=== PATIENT | male | born 1965 | race American Indian/Alaskan Native ===

== ENCOUNTER 2017-03-28 11:29 | Emergency (ER) | payer OTHER ==
[2017-03-28] MEDS ORDERED: XYLOCAINE 1% 20 mL INFILTRATI ONE (11:52)
[2017-03-28] MEDS ORDERED: TRIPLE ANTIBIOTIC TP ONE (11:52)
[2017-03-28] MEDS ORDERED: BOOSTRIX IM ONE (11:52)
[2017-03-28] MEDS ORDERED: ANCEF IV ONE (11:52)
[2017-03-28] MEDS ORDERED: PERCOCET 5/325 PO ONE ×2 (11:52→14:46)
[2017-03-28] MEDS ORDERED: NACL 0.9% IR ONE (11:52)
--- NOTE | 2017-03-28 11:55 | Emergency Department Report ---
<GABRIELLA COSBY - Last Filed: 03/28/17 18:43> ED Upper Extremity Inj HPI - General Chief Complaint: Laceration/Recheck/Suture Stated Complaint: HAND INJURY Time Seen by Provider: 03/28/17 11:51 Source: patient, family Mode of arrival: Ambulatory Limitations: No Limitations - History of Present Illness Complaint: Injury to:: left -: Sudden Other Extremity Injury: Fingers: Left Other Injuries: none Handedness: right Place: work Severity scale (0 -10): 9 Improves With: none Worsens With: movement of extremity Context: direct blow, other (WHILE TAKING LID OF A SEPTIC TANK IT BOUNCED BACK AT HIM) Associated Symptoms: denies other symptoms, other (NEEDS TDAP) - Related Data Previous Rx's Medication Instructions Recorded Last Taken Type Cephalexin [Keflex] 500 mg PO Q12HR #20 cap 03/28/17 Unknown Rx HYDROcodone/APAP 7.5-325 [Star 1 each PO Q6HR PRN #20 tablet 03/28/17 Unknown Rx 7.5/325] Lisinopril [Prinivil] 10 mg PO DAILY #30 tablet 03/28/17 Unknown Rx Morphine Sulfate/Pf [Morphine 1 2 mg IV NOW #2 syringe 03/28/17 Unknown Rx mg/2 ml Syringe] Allergies Allergy/AdvReac Type Severity Reaction Status Date / Time No Known Allergies Allergy Verified 03/28/17 11:33 ED Review of Systems ROS: Stated complaint: HAND INJURY Other details as noted in HPI Comment: All other systems reviewed and negative Musculoskeletal: other (FINGER PAIN) Skin: other (LAC TO LEFT 2/3 FINGERS) ED Past Medical Hx - Past Medical History Hx Hypertension: Yes Additional medical history: OFF HTN MEDS - Surgical History Past Surgical History?: No - Family History Family history: no significant - Social History Smoking Status: Never Smoker Substance Use Type: Alcohol - Medications Home Medications: Home Medications Medication Instructions Recorded Confirmed Last Taken Type Cephalexin [Keflex] 500 mg PO Q12HR #20 cap 03/28/17 Unknown Rx HYDROcodone/APAP 7.5-325 [Star 1 each PO Q6HR PRN #20 tablet 03/28/17 Unknown Rx 7.5/325] Lisinopril [Prinivil] 10 mg PO DAILY #30 tablet 03/28/17 Unknown Rx Morphine Sulfate/Pf [Morphine 1 2 mg IV NOW #2 syringe 03/28/17 Unknown Rx mg/2 ml Syringe] ED Physical Exam - General Limitations: No Limitations ED Course Vital Signs 03/28/17 03/28/17 03/28/17 11:33 12:19 13:09 Temperature 97.9 F Pulse Rate 88 Respiratory 18 18 18 Rate Blood Pressure 201/109 Blood Pressure [Right] O2 Sat by Pulse 98 Oximetry 03/28/17 03/28/17 03/28/17 13:19 13:39 14:52 Temperature 97.6 F Pulse Rate 83 Respiratory 18 18 18 Rate Blood Pressure Blood Pressure 174/106 [Right] O2 Sat by Pulse 100 Oximetry 03/28/17 03/28/17 03/28/17 14:58 15:35 16:05 Temperature Pulse Rate 83 78 78 Respiratory 18 Rate Blood Pressure 174/106 179/102 179/102 Blood Pressure [Right] O2 Sat by Pulse 99 Oximetry - Reevaluation(s) Reevaluation #1: 03/28/17 TO ER FROM WORK RELATED INJURY VIA POV HAND LAC TO L HAND BLEEDING CONTROLLED HTN NOTED NO OTHER INJURY XRAY NOTED TDAP NEEDED ANCEF OPEN FX LABS NOTED MEDICATED FOR PAIN Reevaluation #2: 03/28/17 WOUND REPAIRED PER NOTE TOLERATED WELL MEDICATED FOR PAIN - SEE ORDERS VSS. NAD GOOD RADIAL AND ULNAR PULSES RAPID CAP REFILL TO NON INJURED FINGERS CAN MOVE 4RTH DIG; NAIL BED INTACT BUT IS INJURED. CAN MOVE DIP. 3RD CAN NOT MOVE DIP; THIS DIGIT IS MANGLED AND NEARLY AMPUTATED. IT IS HELD IN PLACE BY PALMAR SURFACE SKIN. THEN NAIL IS AVULSED FROM THE BED; BONE EXPOSED FULL ROM OF HAND AND WRIST SEE PROCEDURE NOTE Reevaluation #3: 03/28/17 16:01 BP TRENDING DOWNWARD DC HOME W FAMILY MEMBER RX FOR LISINOPRIL DRESSING APPLIED AND WOUND CARE INSTRUCTIONS GIVEN DETAILED FOLLOW UP INSTRUCTIONS AND REFERRALS HAVE BEEN GIVEN. - Laceration /Wound Repair L 2ND FINGER Wound Location: upper extremity Wound Length (cm): 1 Wound's Depth, Shape: superficial, stellate, contused tissue Wound Explored: clean Irrigated w/ Saline (ccs): 100 Betadine Prep?: Yes Anesthesia: 1% Lidocaine Volume Anesthetic (ccs): 4 (BLOCK) Wound Debrided: minimal Wound Repaired With: sutures Suture Size/Type: 5:0 Number of Sutures: 1 Layer Closure?: No Sterile Dressing Applied?: Yes Progress: AVULSION WOUND ACROSS DIP XRAY NOTED OPEN FX WOUND CLEANED DIGITAL BLOCK 1 SUTURE TO TACK THE AVULSED SKIN DOWN WOUND IS BLEEDING AROUND NAIL BED BUT THE BASE OF THE NAIL BED IS INTACT. NO NEED TO OPEN NAIL. RAPID CAP REFILL DISTAL SENSATION INTACT. L 3RD FINGER Wound Location: upper extremity Wound Length (cm): 2 Wound's Depth, Shape: flap, stellate, nail-avulsed, contused tissue Wound Explored: contaminated Irrigated w/ Saline (ccs): 100 Betadine Prep?: Yes Anesthesia: 1% Lidocaine Volume Anesthetic (ccs): 4 Wound Debrided: minimal Wound Repaired With: sutures Suture Size/Type: 5:0 Number of Sutures: 3 Layer Closure?: No Sterile Dressing Applied?: Yes Progress: 3 SUTURES USED TO BRING APPROX THE FINGER TIP ONE MED ONE LAT ONE OVER NAIL ITSELF THE TISSUE IS CONTUSED BUT IS PINK AND BLANCHES DISCUSSED POSSIBLE EVENTS W PT DR SCOTT AT BEDSIDE TO EVAL WOUND - Nerve Block Consent Obtained: verbal consent Time Out Performed: Yes Local Anesthetic Used: Lidocaine 1% Amount of anesthesia used: 8 Side: left Nerve Blocks: ulnar, median Procedure Successful: Yes Complications: none Patient Tolerated Procedure: well ED Medical Decision Making - Lab Data Result diagrams: 03/28/17 11:53 03/28/17 11:53 - Radiology Data Radiology results: report reviewed, image reviewed - Medical Decision Making SEE NOTE - Differential Diagnosis OPEN FX Critical care attestation.: If time is entered above; I have spent that time in minutes in the direct care of this critically ill patient, excluding procedure time. ED Disposition Clinical Impression: Closed fracture of tuft of distal phalanx of finger, Crush injury, Open wound, Contusion, Hypertension, Non-adherence to medical treatment Disposition: DC-01 TO HOME OR SELFCARE Is pt being admited?: No Does the pt Need Aspirin: No Condition: Stable Instructions: Finger Fracture (ED), Hypertension (ED) Additional Instructions: LEAVE DRESSING ON THAT WE APPLIED UNTIL SEEN BY ORTHO MEDS ORDERED TDAP WAS GIVEN TODAY Prescriptions: Cephalexin [Keflex] 500 mg PO Q12HR #20 cap HYDROcodone/APAP 7.5-325 [Star 7.5/325] 1 each PO Q6HR PRN #20 tablet PRN Reason: Pain Lisinopril [Prinivil] 10 mg PO DAILY #30 tablet Morphine Sulfate/Pf [Morphine 1 mg/2 ml Syringe] 2 mg IV NOW #2 syringe Referrals: KYLE CERVANTES III, MD [Referring] - 3-5 Days PREMA HARRELL MD [Staff Physician] - 3-5 Days ROSE DE LA CRUZ MD [Staff Physician] - 3-5 Days KANG FERGUSON MD [Staff Physician] - 3-5 Days PHYLLIS KRISHNAMURTHY MD [Staff Physician] - 3-5 Days SHAINA MADRID MD [Staff Physician] - 3-5 Days Time of Disposition: 14:42 <KANG SCOTT - Last Filed: 03/29/17 19:01> ED Medical Decision Making - Lab Data Result diagrams: 03/28/17 11:53 03/28/17 11:53
[2017-03-28] MEDS ORDERED: MORPHINE IV ONE (13:03)
--- NOTE | 2017-03-28 13:09 | XRay Report ---
LEFT HAND RADIOGRAPHS INDICATION: Crush injury to left hand, third digit. COMPARISON: None similar. FINDINGS: AP, lateral and oblique left hand radiographs demonstrate extensive soft tissue avulsion and compound fractures at the tip of the 3rd digit with approximately 1 cm displacement. Comminuted fractures of the tuft/distal aspect of the fourth distal phalanx also seen. No joint involvement. Grossly intact remainder bony articulation. Numerous probable extrinsic artifacts/debris, most along the thumb. CONCLUSION: Severe crush injury to distal aspects of left third and fourth digits, including acute comminuted/compound fractures, as detailed above. Thank you for the opportunity to participate in this patient's care.
[2017-03-28 13:29] LABS: Basophils % (Auto) 0.9 % (0.0-1.8); Eosinophils % (Auto) 0.6 % (0.0-4.3); Hematocrit 45.3 % (35.5-45.6); Mean Corpuscular HGB Conc 33 % (32-34); Mean Corpuscular Hemoglobin 28 pg (28-32); Mean Corpuscular Volume 85 fl (84-94); Platelet Count 264 K/mm3 (140-440); Red Blood Count 5.34 M/mm3 (3.65-5.03); Red Cell Distribution Width 13.4 % (13.2-15.2); White Blood Count 3.9 K/mm3 (4.5-11.0)
[2017-03-28 13:46] LABS: Alanine Aminotransferase 20 units/L (7-56); Albumin 4.2 g/dL (3.9-5); Albumin/Globulin Ratio 1.1 %; Alkaline Phosphatase 89 units/L (35-129); Anion Gap 18 mmol/L; BUN/Creatinine Ratio 16; Blood Urea Nitrogen 14 mg/dL (9-20); Calcium 9.1 mg/dL (8.4-10.2); Carbon Dioxide 25 mmol/L (22-30); Chloride 97.1 mmol/L (98-107); Glucose 146 mg/dL (75-100); Potassium 4.8 mmol/L (3.6-5.0); Sodium 135 mmol/L (137-145); Total Protein 7.9 g/dL (6.3-8.2)
[2017-03-28] MEDS ORDERED: CATAPRES PO ONE (14:54)
[2017-03-28] MEDS ORDERED: CATAPRES ONE (14:57)
[2017-03-28 15:39] VITALS: BP 179/102
[2017-03-28] MEDS ORDERED: ZESTRIL PO ONE (15:55)
== END 2017-03-28 16:07 | disposition home or self-care (01) ==
LOC: ED 11:29
DX: S62.663B Nondisplaced fracture of distal phalanx of left middle finger, initial encounter for open fracture (principal); S62.665B Nondisplaced fracture of distal phalanx of left ring finger, initial encounter for open fracture; I10 Essential (primary) hypertension; W20.8XXA Other cause of strike by thrown, projected or falling object, initial encounter; Y93.89 Activity, other specified; Y92.89 Other specified places as the place of occurrence of the external cause; Y99.8 Other external cause status
CPT/HCPCS: 12041; 36415; 73130; 80053; 85025; 90471; 90715; 96374; 96375; 99284; J0690; J2270; A6250

== ENCOUNTER 2017-04-06 12:32 | Emergency (ER) | payer SELFPAY ==
[2017-04-06 17:52] VITALS: BP 200/122
== END 2017-04-06 22:30 | disposition left against medical advice (07) ==
LOC: ED 12:32
DX: S69.92XA Unspecified injury of left wrist, hand and finger(s), initial encounter (principal); Z53.21 Procedure and treatment not carried out due to patient leaving prior to being seen by health care provider; X58.XXXA Exposure to other specified factors, initial encounter; Y93.89 Activity, other specified; Y99.8 Other external cause status; Y92.89 Other specified places as the place of occurrence of the external cause

== ENCOUNTER 2017-04-07 09:57 | Emergency (ER) | payer OTHER ==
--- NOTE | 2017-04-07 10:36 | Emergency Department Report ---
ED General Adult HPI - General Chief complaint: Laceration/Recheck/Suture Stated complaint: LEFT HAND FINGER INJURY Time Seen by Provider: 04/07/17 10:36 Source: patient, RN notes reviewed, old records reviewed Mode of arrival: Ambulatory Limitations: No Limitations - History of Present Illness -: Gradual Location: upper extremity Improves with: none Worsens with: none Associated Symptoms: denies: confusion, chest pain, cough, diaphoresis, fever/ chills, headaches, loss of appetite, malaise, nausea/vomiting, rash, seizure, shortness of breath, syncope, weakness Treatments Prior to Arrival: other (REPORTS HE TOOK HIS ANTIBIOTICS) - Related Data Previous Rx's Medication Instructions Recorded Last Taken Type Lisinopril [Prinivil] 10 mg PO DAILY #30 tablet 03/28/17 Unknown Rx Clindamycin [Clindamycin CAP] 300 mg PO Q6H #40 capsule 04/07/17 Unknown Rx traMADol [Ultram] 50 mg PO Q6HR PRN #20 tablet 04/07/17 Unknown Rx Allergies Allergy/AdvReac Type Severity Reaction Status Date / Time No Known Allergies Allergy Verified 04/07/17 10:30 ED Review of Systems ROS: Stated complaint: LEFT HAND FINGER INJURY Other details as noted in HPI Comment: All other systems reviewed and negative Skin: other (FINGER PAIN - SEE NOTE; NO FEVER OR OTHER CO) ED Past Medical Hx - Past Medical History Hx Hypertension: Yes Additional medical history: OFF HTN MEDS, Left hand crush injury - Social History Smoking Status: Current Every Day Smoker Substance Use Type: Alcohol, Marijuana, Prescribed - Medications Home Medications: Home Medications Medication Instructions Recorded Confirmed Last Taken Type Lisinopril [Prinivil] 10 mg PO DAILY #30 tablet 03/28/17 Unknown Rx Clindamycin [Clindamycin CAP] 300 mg PO Q6H #40 capsule 04/07/17 Unknown Rx traMADol [Ultram] 50 mg PO Q6HR PRN #20 tablet 04/07/17 Unknown Rx ED Physical Exam - General Limitations: No Limitations General appearance: alert - Head Head exam: Present: atraumatic - Eye Eye exam: Present: PERRL - ENT ENT exam: Present: mucous membranes moist - Neck Neck exam: Present: normal inspection - Respiratory Respiratory exam: Present: normal lung sounds bilaterally - Cardiovascular Cardiovascular Exam: Present: regular rate - GI/Abdominal GI/Abdominal exam: Present: soft - Extremities Exam Extremities exam: Present: normal inspection, full ROM - Expanded Upper Extremity Exam Left Hand Wrist exam: Present: other (SEE NOTE) - Back Exam Back exam: Present: normal inspection, full ROM - Neurological Exam Neurological exam: Present: alert, oriented X3, CN II-XII intact - Psychiatric Psychiatric exam: Present: normal affect, normal mood - Skin Skin exam: Present: warm, dry, intact ED Course Vital Signs 04/07/17 04/07/17 10:31 12:44 Temperature 97.8 F Pulse Rate 86 84 Respiratory 18 Rate Blood Pressure 191/114 162/101 O2 Sat by Pulse 99 Oximetry - Reevaluation(s) Reevaluation #1: 04/07/17 11:37 TO ER NO FOLLOW UP INSTRUCTED DISCUSSED W DR FINK DISCUSSED W DR KRISHNAMURTHY- no need to admit for amputation; continue current plan; believes it will dry and slough off. WBC N TEMP N Reevaluation #2: 04/07/17 12:37 PT SUFFERED PARTIAL AMP TO FINGER APPROX 10 D AGO HE DID NOT FOLLOW UP HE DID TAKE ANBX TODAY PRESENTS W PALMAR SURFACE OF THE R MIDDLE FINGER DISCOLORED NO FEVER NON TOXIC NON SEPTIC APPEARING PAINFUL 04/07/17 12:39 WOUND CARE- WOUND CLEANED. SUTURE TO THE RING FINGER REMOVED THIS FINGER IS PINK WO DRAINAGE SEEMS TO BE HEALING OK THE MIDDLE FINGER IS THE FINGER W DISCOLORATION AND PAIN NO PURULENT DRAINAGE PT REPORTS THAT WHEN IT DOES DRAIN IT IS FLUID; NOT PURULENT NO ODOR NO NECROSIS MORE WET APPEARING THAN DRY APPEARING. IM CLINDA WILL START ON PO CLINDA TDAP IS UTD MEDICATED FOR PAIN PT WOUND CARE BP ELEVATED DID NOT FOLLOW UP FOR THAT EITHER CLONIDINE PO Reevaluation #3: 04/07/17 13:17 dc to home w bp dec to follow up Mendoza discussed w pt follow up as well daughter at bedside ED Medical Decision Making - Lab Data Result diagrams: 04/07/17 10:53 04/07/17 10:53 - Medical Decision Making SEE NOTE DR KRISHNAMURTHY CONSULTED WBC N TEMP N - Differential Diagnosis RO INFECTION Critical care attestation.: If time is entered above; I have spent that time in minutes in the direct care of this critically ill patient, excluding procedure time. ED Disposition Clinical Impression: Finger, open wounds, complicated, Hypertension Disposition: DC-01 TO HOME OR SELFCARE Is pt being admited?: No Does the pt Need Aspirin: No Condition: Stable Instructions: Finger Amputation (ED) Additional Instructions: TAKE MEDS WRITTEN TODAY CONRADR 18$ CALL PCP GIVEN BELOW FOR AN APPOINTMENT THIS WEEK TELL THEM YOU'VE BEEN SEEN HERE AND WE REFERRED YOU YOUR BLOOD PRESSURE IS NOT CONTROLLED CALL DR KRISHNAMURTHY IN AM TELL HIM HE SPOKE Edward MODI TODAY AND LAST WEEK TELL HIM YOU WHERE INJURED AT WORK WE ARE CONCERNED ABOUT LOOSING THE TIP OF FINGER IF YOU CAN NOT GET TO DR KRISHNAMURTHY ASK TO SPEAK WITH HIS NURSE OR PHYSICIAN [employer] AND ASK THEM TO REVIEW YOUR MEDICAL RECORD FROM ER TODAY. CHANGE DRESSING DAILY WASH WITH SOAP AND WATER RETURN TO ER FOR FEVER Prescriptions: Clindamycin [Clindamycin CAP] 300 mg PO Q6H #40 capsule traMADol [Ultram] 50 mg PO Q6HR PRN #20 tablet PRN Reason: Pain Referrals: [facility] [Outside] - 3-5 Days PHYLLIS KRISHNAMURTHY MD [Staff Physician] - 3-5 Days Time of Disposition: 11:38
[2017-04-07 11:09] LABS: Basophils # (Auto) 0.1 K/mm3 (0.0-0.1); Basophils % (Auto) 1.3 % (0.0-1.8); Eosinophils # (Auto) 0.1 K/mm3 (0.0-0.4); Eosinophils % (Auto) 1.5 % (0.0-4.3); Hematocrit 48.8 % (35.5-45.6); Hemoglobin 16.2 gm/dl (11.8-15.2); Lymphocytes # (Auto) 1.8 K/mm3 (1.2-5.4); Lymphocytes % (Auto) 37.5 % (13.4-35.0); Mean Corpuscular HGB Conc 33 % (32-34); Mean Corpuscular Hemoglobin 28 pg (28-32); Mean Corpuscular Volume 84 fl (84-94); Monocytes # (Auto) 0.8 K/mm3 (0.0-0.8); Monocytes % (Auto) 15.7 % (0.0-7.3); Platelet Count 329 K/mm3 (140-440); Red Blood Count 5.81 M/mm3 (3.65-5.03); Red Cell Distribution Width 12.9 % (13.2-15.2)
[2017-04-07 11:51] LABS: Alanine Aminotransferase 23 units/L (7-56); Albumin 4.5 g/dL (3.9-5); BUN/Creatinine Ratio 13; Blood Urea Nitrogen 12 mg/dL (9-20); Calcium 9.3 mg/dL (8.4-10.2); Hemolysis Index 5
[2017-04-07] MEDS ORDERED: CLEOCIN IM ONE (12:05)
[2017-04-07] MEDS ORDERED: PERCOCET 5/325 PO ONE (12:06)
[2017-04-07] MEDS ORDERED: CATAPRES PO ONE (12:08)
[2017-04-07 13:29] VITALS: BP 159/88
== END 2017-04-07 13:29 | disposition home or self-care (01) ==
LOC: ED 09:57
DX: S61.215D Laceration without foreign body of left ring finger without damage to nail, subsequent encounter (principal); I10 Essential (primary) hypertension; F12.10 Cannabis abuse, uncomplicated; F17.200 Nicotine dependence, unspecified, uncomplicated; Z98.890 Other specified postprocedural states; X58.XXXD Exposure to other specified factors, subsequent encounter
CPT/HCPCS: 36415; 80053; 85025; 96372

== ENCOUNTER 2021-05-01 10:12 | Inpatient (IN) | payer SELFPAY ==
--- NOTE | 2021-05-01 10:40 | Emergency Department Report ---
HPI - General Chief Complaint: High BP Time Seen by Provider: 05/01/21 10:31 - HPI HPI: 56-year-old -F[place] male presents to the emergency department via EMS from home with a complaint of some weakness causing him to have a fall that occurred yesterday afternoon. Patient says that he was walking in his home when suddenly he got dizzy and fell down, hitting his head on the wall in the process. His daughter came home yesterday evening and he told her about the fall and that he was having left leg weakness but declined to have her call for EMS at that time. He finally agreed to let her call for EMS this morning. When EMS arrived the patient no longer had the left leg weakness but just complained of some generalized weakness. He was found to have an extremely elevated blood pressure with a systolic of about 240. He does have a history of hypertension and admits to medication noncompliance. He complains of a mild generalized headache, but denies any fever, vision change, slurred speech, numbness, chest pain, shortness of breath. He has not taken anything, nor received anything, for his symptoms prior to presentation today. ED Past Medical Hx - Past Medical History Hx Hypertension: Yes Additional medical history: OFF HTN MEDS, Left hand crush injury - Social History Smoking Status: Current Every Day Smoker Substance Use Type: Alcohol, Marijuana, Prescribed - Medications Home Medications: Home Medications Medication Instructions Recorded Confirmed Last Taken Type lisinopriL [Prinivil] 10 mg PO DAILY #30 tablet 03/28/17 05/01/21 Unknown Rx Clindamycin [Clindamycin CAP] 300 mg PO Q6H #40 capsule 04/07/17 05/01/21 Unknown Rx traMADoL [Ultram] 50 mg PO Q6HR PRN #20 tablet 04/07/17 05/01/21 Unknown Rx ED Review of Systems ROS: Stated complaint: HYPERTENSION/POSS CVA Other details as noted in HPI Comment: All other systems reviewed and negative Constitutional: weakness. denies: chills, fever Eyes: denies: eye pain, vision change ENT: denies: ear pain, throat pain Respiratory: denies: cough, orthopnea Cardiovascular: denies: chest pain, palpitations Gastrointestinal: denies: abdominal pain, vomiting Genitourinary: denies: dysuria, discharge Musculoskeletal: denies: back pain, arthralgia Skin: denies: rash, lesions Neurological: headache, weakness, other (dizziness). denies: numbness, paresthesias Physical Exam - Physical Exam Physical Exam: GENERAL: The patient is well-developed well-nourished. HENT: Normocephalic. Atraumatic. Patient has moist mucous membranes. EYES: Extraocular motions are intact. No nystagmus. NECK: Supple. Trachea is midline. CHEST/LUNGS: Clear to auscultation. There is no respiratory distress noted. HEART/CARDIOVASCULAR: Regular. There is no tachycardia. There is no murmur. ABDOMEN: Abdomen is soft, nontender. Patient has normal bowel sounds. There is no abdominal distention. SKIN: Skin is warm and dry. NEURO: The patient is awake, alert, and oriented. The patient is cooperative. The patient has no focal neurologic deficits. Normal speech. Cranial nerves II through XII grossly intact. No pronator drift or dysmetria. No facial asymmetry. MUSCULOSKELETAL: There is no tenderness or deformity. There is no limitation range of motion. ED Course - Reevaluation(s) Reevaluation #1: 05/01/21 15:36 The patient has received 20 mg of hydralazine, 20 mg of labetalol, and most recently got 0.2 mg of Catapres. His blood pressure continues to be very elevated and uncontrolled. I went to reevaluate the patient and found him sprawled out sideways on the bed complaining of severe dizziness and he is unable to ambulate secondary to this dizziness/lightheadedness. Initial CT scan of the head without contrast was unremarkable for any hemorrhage or large vessel occlusion. I placed an order for the patient to receive a CT angiography study of the head and neck. He will be admitted to the hospital and I have spoken to the hospitalist service (Dr Bustamante). ED Medical Decision Making - Lab Data Result diagrams: 05/01/21 11:33 05/01/21 11:33 Lab Results 05/01/21 05/01/21 05/01/21 Range/Units 11:33 11:33 11:33 WBC 4.8 (4.5-11.0) K/mm3 RBC 6.36 H (3.65-5.03) M/mm3 Hgb 16.9 H (11.8-15.2) gm/dl Hct 53.1 H (35.5-45.6) % MCV 83 L (84-94) fl MCH 27 L (28-32) pg MCHC 32 (32-34) % RDW 13.0 L (13.2-15.2) % Plt Count 333 (140-440) K/mm3 Lymph % (Auto) 22.5 (13.4-35.0) % Green % (Auto) 12.3 H (0.0-7.3) % Eos % (Auto) 0.4 (0.0-4.3) % Baso % (Auto) 1.1 (0.0-1.8) % Lymph # (Auto) 1.1 L (1.2-5.4) K/mm3 Green # (Auto) 0.6 (0.0-0.8) K/mm3 Eos # (Auto) 0.0 (0.0-0.4) K/mm3 Baso # (Auto) 0.1 (0.0-0.1) K/mm3 Seg Neutrophils % 63.7 (40.0-70.0) % Seg Neutrophils # 3.0 (1.8-7.7) K/mm3 PT (12.2-14.9) Sec. INR (0.87-1.13) Sodium 137 (137-145) mmol/L Potassium 4.7 (3.6-5.0) mmol/L Chloride 96.6 L (98-107) mmol/L Carbon Dioxide 24 (22-30) mmol/L Anion Gap 21 mmol/L BUN 12 (9-20) mg/dL Creatinine 1.1 (0.8-1.3) mg/dL Estimated GFR > 60 ml/min BUN/Creatinine Ratio 11 % Glucose 226 H (75-100) mg/dL Calcium 10.2 (8.4-10.2) mg/dL Total Bilirubin 0.50 (0.1-1.2) mg/dL AST 36 (5-40) units/L ALT 15 (7-56) units/L Alkaline Phosphatase 119 (35-129) units/L Troponin T < 0.010 (0.00-0.029) ng/mL Total Protein 8.8 H (6.3-8.2) g/dL Albumin 4.5 (3.9-5) g/dL Albumin/Globulin Ratio 1.0 % TSH 2.660 (0.270-4.200) mlU/mL 05/01/21 Range/Units 11:33 WBC (4.5-11.0) K/mm3 RBC (3.65-5.03) M/mm3 Hgb (11.8-15.2) gm/dl Hct (35.5-45.6) % MCV (84-94) fl MCH (28-32) pg MCHC (32-34) % RDW (13.2-15.2) % Plt Count (140-440) K/mm3 Lymph % (Auto) (13.4-35.0) % Green % (Auto) (0.0-7.3) % Eos % (Auto) (0.0-4.3) % Baso % (Auto) (0.0-1.8) % Lymph # (Auto) (1.2-5.4) K/mm3 Green # (Auto) (0.0-0.8) K/mm3 Eos # (Auto) (0.0-0.4) K/mm3 Baso # (Auto) (0.0-0.1) K/mm3 Seg Neutrophils % (40.0-70.0) % Seg Neutrophils # (1.8-7.7) K/mm3 PT 13.2 (12.2-14.9) Sec. INR 0.90 (0.87-1.13) Sodium (137-145) mmol/L Potassium (3.6-5.0) mmol/L Chloride (98-107) mmol/L Carbon Dioxide (22-30) mmol/L Anion Gap mmol/L BUN (9-20) mg/dL Creatinine (0.8-1.3) mg/dL Estimated GFR ml/min BUN/Creatinine Ratio % Glucose (75-100) mg/dL Calcium (8.4-10.2) mg/dL Total Bilirubin (0.1-1.2) mg/dL AST (5-40) units/L ALT (7-56) units/L Alkaline Phosphatase (35-129) units/L Troponin T (0.00-0.029) ng/mL Total Protein (6.3-8.2) g/dL Albumin (3.9-5) g/dL Albumin/Globulin Ratio % TSH (0.270-4.200) mlU/mL - EKG Data -: EKG Interpreted by Wi EKG shows normal: sinus rhythm, axis, intervals, QRS complexes (LVH), ST-T waves (Repolarization) Rate: normal - EKG Data When compared to previous EKG there are: previous EKG unavailable Interpretation: other (Sinus rhythm at 92 bpm, normal axis, normal intervals, LVH, early repolarization. No ST elevation DE) - Radiology Data Radiology results: report reviewed CT HEAD WITHOUT CONTRAST INDICATION / CLINICAL INFORMATION: Weakness, transient L leg weakness, HTN. TECHNIQUE: Axial imaging performed from the skull apex through the skull base without the use of contrast. Sagittal and coronal reformatted images. All CT scans at this location are performed using CT dose reduction for ALARA by means of automated exposure control. COMPARISON: None available. FINDINGS: CEREBRAL PARENCHYMA: Mild nonspecific chronic white matter changes are noted bilaterally. Small chronic appearing lacunar infarcts are identified in both basal ganglia. No large chronic infarct. No acute parenchymal abnormality is appreciated. HEMORRHAGE: None. EXTRA-AXIAL SPACES: Normal in size and morphology for the patient's age. VENTRICULAR SYSTEM: Normal in size and morphology for the patient's age. MIDLINE SHIFT OR HERNIATION: None. CEREBELLUM / BRAINSTEM: No significant abnormality. CALVARIUM: No significant abnormality. ORBITS: Normal as visualized. PARANASAL SINUSES / MASTOID AIR CELLS: Normal as visualized. SOFT TISSUES of HEAD: No significant abnormality. ADDITIONAL FINDINGS: None. IMPRESSION: No acute intracranial abnormality. Nonsp ecific chronic white matter changes. Chronic lacunar infarcts in both basal ganglia. - Medical Decision Making This patient presented to the emergency department with a complaint of having some dizziness and weakness yesterday that caused him to fall and hit his head. He then claimed to have left leg weakness but that has resolved upon presentation to the emergency department. Initially the patient does not have any focal, motor or sensory deficits and cranial nerves are intact. CT scan of the head without contrast did not show any hemorrhage, large vessel occlusion, or any other acute process. Patient's labs have been unremarkable including CBC, metabolic panel, normal thyroid function and negative troponin. EKG shows LVH but otherwise no morphology consistent with ST ovation myocardial infarction Patient presented with extreme elevated blood pressure. He has a history of medication noncompliance and is a 1 pack/day daily smoker. Altogether the patient has received 20 mg of hydralazine, 20 mg of labetalol, and 0.2 mg of Catapres. His blood pressure remains elevated without much change from his initial blood pressure measurement. He continues to have muscle cramps in his legs. We attempted to sit the patient up in bed and stand up with a goal of testing his ambulation. However the patient immediately has increased dizziness and lightheadedness and does not appear stable for ambulation at this time. I have ordered CT angiography of the head and neck and, assuming there are no large vessel occlusions or clinically significant stenosis, the patient will be admitted to the hospital for further evaluation and treatment. He has been accepted for admission by the hospitalist, Dr. Bustamante. Critical Care Time: No Critical care attestation.: If time is entered above; I have spent that time in minutes in the direct care of this critically ill patient, excluding procedure time. ED Disposition Clinical Impression: Accelerated hypertension, Dizziness, Lightheaded Disposition: ADMITTED INPATIENT Is pt being admited?: Yes Condition: Serious Instructions: Hypertension (ED) Time of Disposition: 15:44
[2021-05-01] MEDS ORDERED: hydrALAZINE 20 MG/1 ML INJ IV ONE ×2 (11:44→14:10)
[2021-05-01 11:52] LABS: Basophils # (Auto) 0.1 K/mm3 (0.0-0.1); Basophils % (Auto) 1.1 % (0.0-1.8); Eosinophils % (Auto) 0.4 % (0.0-4.3); Hematocrit 53.1 % (35.5-45.6); Hemoglobin 16.9 gm/dl (11.8-15.2); Lymphocytes # (Auto) 1.1 K/mm3 (1.2-5.4); Lymphocytes % (Auto) 22.5 % (13.4-35.0); Mean Corpuscular HGB Conc 32 % (32-34); Mean Corpuscular Volume 83 fl (84-94); Monocytes # (Auto) 0.6 K/mm3 (0.0-0.8); Monocytes % (Auto) 12.3 % (0.0-7.3); Platelet Count 333 K/mm3 (140-440); Red Blood Count 6.36 M/mm3 (3.65-5.03)
[2021-05-01 12:01] LABS: INR 0.9 (0.87-1.13)
[2021-05-01 12:14] LABS: Alanine Aminotransferase 15 units/L (7-56); Albumin 4.5 g/dL (3.9-5); BUN/Creatinine Ratio 11; Blood Urea Nitrogen 12 mg/dL (9-20); Calcium 10.2 mg/dL (8.4-10.2); Hemolysis Index 14
--- NOTE | 2021-05-01 12:24 | Cat Scan Report ---
CT HEAD WITHOUT CONTRAST INDICATION / CLINICAL INFORMATION: Weakness, transient L leg weakness, HTN. TECHNIQUE: Axial imaging performed from the skull apex through the skull base without the use of cont rast. Sagittal and coronal reformatted images. All CT scans at this location are performed using CT dose reduction for ALARA by means of automated exposure control. COMPARISON: None available. FINDINGS: CEREBRAL PARENCHYMA: Mild nonspecific chronic white matter changes are noted bilaterally. Small chron ic appearing lacunar infarcts are identified in both basal ganglia. No large chronic infarct. No acut e parenchymal abnormality is appreciated. HEMORRHAGE: None. EXTRA-AXIAL SPACES: Normal in size and morphology for the patient's age. VENTRICULAR SYSTEM: Normal in size and morphology for the patient's age. MIDLINE SHIFT OR HERNIATION: None. CEREBELLUM / BRAINSTEM: No significant abnormality. CALVARIUM: No significant abnormality. ORBITS: Normal as visualized. PARANASAL SINUSES / MASTOID AIR CELLS: Normal as visualized. SOFT TISSUES of HEAD: No significant abnormality. ADDITIONAL FINDINGS: None. IMPRESSION: No acute intracranial abnormality. Nonspecific chronic white matter changes. Chronic lacunar infarcts in both basal ganglia. Signer Name: Frank Sargent Jr, MD Signed: 05/01/2021 12:20 PM Workstation Name: [id number]
[2021-05-01] MEDS ORDERED: cloNIDine 0.2 MG TAB PO ONE (14:57)
--- NOTE | 2021-05-01 16:44 | Cat Scan Report ---
CTA NECK WITH CONTRAST 05/01/2021 INDICATION / CLINICAL INFORMATION: Dizziness, Headache, unstable gait. COMPARISON: None. TECHNIQUE: Routine CTA of the neck is performed. 3-D/MIP reformats were postprocessed. Percentage st enosis is determined by direct quantitative measurements of diseased internal carotid artery diameter compared with normal distal internal carotid artery reference segments or by criteria similar to CHLOE CET where applicable. All CT scans at this location are performed using CT dose reduction for ALARA b y means of automated exposure control. CONTRAST: 100 ml of Omnipaque 350 FINDINGS: Carotid bifurcations: No evidence of carotid bifurcation stenosis. Carotid arteries: No significant abnormality. Cervical vertebral arteries: No significant abnormality. Aortic arch: No significant abnormality. None. IMPRESSION: No significant abnormality. Signer Name: Rui Desouza MD Signed: 05/01/2021 4:40 PM Workstation Name: [id number]
--- NOTE | 2021-05-01 16:49 | Cat Scan Report ---
CTA HEAD WITH CONTRAST and 252 HISTORY: Dizziness, Headache, unstable gait. COMPARISON: None. TECHNIQUE: All CT scans at this location are performed using CT dose reduction for ALARA by means of automated exposure control.. 3-D/MIP reformats postprocessed. Percentage stenosis is determined by d irect quantitative measurements of diseased internal carotid artery diameter compared with normal dis preethi internal carotid artery reference segments or by criteria similar to NASCET where applicable. CONTRAST: 100 ml of Omnipaque 350 FINDINGS: CTA HEAD: Intracranial vertebral arteries: No significant abnormality. Basilar artery: No significant abnormality. Posterior cerebral arteries: No significant abnormality. Intracranial internal carotid arteries: No significant abnormality. Anterior cerebral arteries: No significant abnormality. Middle cerebral arteries: Atherosclerotic vascular calcifications are present. There is some dolichoe ctasia of the distal right internal carotid artery. No evidence of occlusion. Dural venous sinuses:Not optimally opacified. No significant abnormality. Additional findings: None. IMPRESSION: 1. Atherosclerotic changes. No evidence of large vessel occlusion. Signer Name: Rui Desouza MD Signed: 05/01/2021 4:44 PM Workstation Name: [id number]
[2021-05-01] MEDS ORDERED: ONDANSETRON 4 MG/2 ML INJ IV PRN (17:16)
[2021-05-01] MEDS ORDERED: ACETAMINOPHEN 325 MG TAB PO PRN (17:16)
[2021-05-01] MEDS ORDERED: hydrALAZINE 20 MG/1 ML INJ IV PRN (17:28)
[2021-05-01] MEDS: hydrALAZINE 25 MG TAB PO SCH ×2 (19:11→22:17)
[2021-05-01] MEDS: VALSARTAN 160MG TAB PO SCH (19:12)
[2021-05-01] MEDS: HYDROmorphone 1 MG/1 ML INJ IV PRN (21:02)
[2021-05-01] MEDS: carvediloL 12.5 MG TAB PO SCH (22:17)
[2021-05-01] MEDS: HEPARIN 5,000 UNIT/1 ML VIAL SUB-Q SCH (22:18)
[2021-05-02] MEDS ORDERED: cloNIDine 0.1 MG TAB PO ONE (01:22)
[2021-05-02 06:17] LABS: Basophils # (Auto) 0.1 K/mm3 (0.0-0.1); Eosinophils % (Auto) 0.7 % (0.0-4.3); Hematocrit 52.5 % (35.5-45.6); Hemoglobin 16.7 gm/dl (11.8-15.2); Lymphocytes # (Auto) 1.6 K/mm3 (1.2-5.4); Lymphocytes % (Auto) 25.5 % (13.4-35.0); Mean Corpuscular HGB Conc 32 % (32-34); Mean Corpuscular Volume 83 fl (84-94); Monocytes # (Auto) 0.6 K/mm3 (0.0-0.8); Monocytes % (Auto) 10.6 % (0.0-7.3); Platelet Count 393 K/mm3 (140-440); Red Blood Count 6.37 M/mm3 (3.65-5.03); Red Cell Distribution Width 13.1 % (13.2-15.2)
[2021-05-02] MEDS: hydrALAZINE 25 MG TAB PO SCH ×3 (06:21→21:45)
[2021-05-02] MEDS: VALSARTAN 160MG TAB PO SCH ×2 (06:22→18:49)
[2021-05-02 06:31] LABS: Calcium 9.5 mg/dL (8.4-10.2)
--- NOTE | 2021-05-02 07:04 | History and Physical Report ---
History of Present Illness Date of examination: 05/01/21 Date of admission: 05/01/21 17:16 Chief complaint: Fall yesterday. High pressure since a.m. today. History of present illness: 56-year-old -[place] male comes to the emergency department because of a fall yesterday afternoon. Patient is also complaining of left leg weakness which resolved within couple of hours. Daughter called EMS this morning and patient had a high blood pressure of 240 systolic and 130 diastolic. Patient complains of generalized headache. No vision changes slurred speech or any weakness. Patient does not take any medications. Patient is supposed to be taking lisinopril with which he is noncompliant. No chest pain. Patient is not sure about his leg weakness yesterday. - Past Medical History --Hypertension: Yes --Additional medical history: Not taking any blood pressure medications Patient had a left hand crush injury. - Social History Smoking Status: Current Every Day Smoker Substance Use Type: Alcohol, Marijuana, Prescribed - Medications Home Medications: Home Medications Medication Instructions Recorded Confirmed Last Taken Type lisinopriL [Prinivil] 10 mg PO DAILY #30 tablet 03/28/17 05/01/21 Unknown Rx Clindamycin [Clindamycin CAP] 300 mg PO Q6H #40 capsule 04/07/17 05/01/21 Unknown Rx traMADoL [Ultram] 50 mg PO Q6HR PRN #20 tablet 04/07/17 05/01/21 Unknown Rx Review of Systems ROS: Stated complaint: HYPERTENSION/POSS CVA Other details as noted in HPI Comment: All other systems reviewed and negative Constitutional: weakness. denies: chills, fever Eyes: denies: eye pain, vision change ENT: denies: ear pain, throat pain Respiratory: denies: cough, orthopnea Cardiovascular: denies: chest pain, palpitations Gastrointestinal: denies: abdominal pain, vomiting Genitourinary: denies: dysuria, discharge Musculoskeletal: denies: back pain, arthralgia Skin: denies: rash, lesions Neurological: headache, weakness, other (dizziness). denies: numbness, paresthesias Medications and Allergies Allergies Allergy/AdvReac Type Severity Reaction Status Date / Time No Known Allergies Allergy Verified 05/01/21 11:47 Home Medications Medication Instructions Recorded Confirmed Last Taken Type lisinopriL [Prinivil] 10 mg PO DAILY #30 tablet 03/28/17 05/01/21 Unknown Rx Clindamycin [Clindamycin CAP] 300 mg PO Q6H #40 capsule 04/07/17 05/01/21 Unknown Rx traMADoL [Ultram] 50 mg PO Q6HR PRN #20 tablet 04/07/17 05/01/21 Unknown Rx Active Meds: Active Medications Acetaminophen (Acetaminophen 325 Mg Tab) 650 mg PO Q4H PRN PRN Reason: Pain MILD(1-3)/Fever >100.5/VARGAS Carvedilol (Carvedilol 12.5 Mg Tab) 12.5 mg PO BID [facility] Last Admin: 05/01/21 22:17 Dose: 12.5 mg Heparin Sodium (Porcine) (Heparin 5,000 Unit/1 Ml Vial) 5,000 unit SUB-Q Q12HR [facility] Last Admin: 05/01/21 22:18 Dose: 5,000 unit Hydralazine HCl (Hydralazine 20 Mg/1 Ml Inj) 10 mg IV Q2H PRN PRN Reason: Blood Pressure Last Admin: 05/02/21 00:17 Dose: 10 mg Hydralazine HCl (Hydralazine 25 Mg Tab) 50 mg PO Q8HR [facility] Last Admin: 05/02/21 06:21 Dose: 50 mg Hydromorphone HCl (Hydromorphone 1 Mg/1 Ml Inj) 0.5 mg IV Q3H PRN PRN Reason: Pain , Severe (7-10) Last Admin: 05/01/21 21:02 Dose: 0.5 mg Ondansetron HCl (Ondansetron 4 Mg/2 Ml Inj) 4 mg IV Q8H PRN PRN Reason: Nausea And Vomiting Oxycodone/Acetaminophen (Oxycodone /Acetaminophen 5-325mg Tab) 1 tab PO Q6H PRN PRN Reason: Pain, Moderate (4-6) Sodium Chloride (Sodium Chloride 0.9% 10 Ml Flush Syringe) 10 ml IV BID [facility] Last Admin: 05/01/21 22:18 Dose: 10 ml Sodium Chloride (Sodium Chloride 0.9% 10 Ml Flush Syringe) 10 ml IV PRN PRN PRN Reason: LINE FLUSH Valsartan (Valsartan 160mg Tab) 160 mg PO Q12H [facility] Last Admin: 01/26/22 06:22 Dose: 160 mg Exam - Constitutional Vitals: Temp Pulse Resp BP Pulse Ox 98.7 F 87 18 240/120 100 05/02/21 00:20 05/02/21 06:21 05/02/21 03:44 05/02/21 06:21 05/02/21 06:14 General appearance: Present: no acute distress, well-nourished - EENT Eyes: Present: PERRL ENT: hearing intact, clear oral mucosa - Neck Neck: Present: supple, normal ROM - Respiratory Respiratory effort: normal Respiratory: bilateral: CTA - Cardiovascular Heart rate: 78 Rhythm: regular Heart Sounds: Present: S1 & S2. Absent: rub, click - Extremities Extremities: pulses symmetrical, No edema Peripheral Pulses: within normal limits - Abdominal General gastrointestinal: Present: soft, non-tender, non-distended, normal bowel sounds Male genitourinary: Present: normal - Integumentary Integumentary: Present: clear, warm, dry - Musculoskeletal Musculoskeletal: gait normal, strength equal bilaterally - Psychiatric Psychiatric: appropriate mood/affect, intact judgment & insight - Neurologic Neurologic: CNII-XII intact, moves all extremities HEART Score - HEART Score History: Moderately suspicious Age: 45-65 Risk factors: 1-2 risk factors Troponin: Troponin T < 0.010 ng/mL (0.00-0.029) 05/01/21 11:33 Troponin: < normal limit - Critical Actions Critical Actions: 0-3 pts:0.9-1.7%risk of adverse cardiac event.Candidate for discharge Results - Labs CBC & Chem 7: 05/02/21 05:34 05/02/21 05:34 Labs: Laboratory Last Values WBC 6.1 K/mm3 (4.5-11.0) 05/02/21 05:34 RBC 6.37 M/mm3 (3.65-5.03) H 05/02/21 05:34 Hgb 16.7 gm/dl (11.8-15.2) H 05/02/21 05:34 Hct 52.5 % (35.5-45.6) H 05/02/21 05:34 MCV 83 fl (84-94) L 05/02/21 05:34 MCH 26 pg (28-32) L 05/02/21 05:34 MCHC 32 % (32-34) 05/02/21 05:34 RDW 13.1 % (13.2-15.2) L 05/02/21 05:34 Plt Count 393 K/mm3 (140-440) 05/02/21 05:34 Lymph % (Auto) 25.5 % (13.4-35.0) 05/02/21 05:34 [place] % (Auto) 10.6 % (0.0-7.3) H 05/02/21 05:34 Eos % (Auto) 0.7 % (0.0-4.3) 05/02/21 05:34 Baso % (Auto) 1.0 % (0.0-1.8) 05/02/21 05:34 Lymph # (Auto) 1.6 K/mm3 (1.2-5.4) 05/02/21 05:34 [place] # (Auto) 0.6 K/mm3 (0.0-0.8) 05/02/21 05:34 Eos # (Auto) 0.0 K/mm3 (0.0-0.4) 05/02/21 05:34 Baso # (Auto) 0.1 K/mm3 (0.0-0.1) 05/02/21 05:34 Seg Neutrophils % 62.2 % (40.0-70.0) 05/02/21 05:34 Seg Neutrophils # 3.8 K/mm3 (1.8-7.7) 05/02/21 05:34 PT 13.2 Sec. (12.2-14.9) 05/01/21 11:33 INR 0.90 (0.87-1.13) 05/01/21 11:33 Sodium 130 mmol/L (137-145) L D 05/02/21 05:34 Potassium 4.2 mmol/L (3.6-5.0) 05/02/21 05:34 Chloride 95.2 mmol/L (98-107) L 05/02/21 05:34 Carbon Dioxide 20 mmol/L (22-30) L 05/02/21 05:34 Anion Gap 19 mmol/L 05/02/21 05:34 BUN 18 mg/dL (9-20) 05/02/21 05:34 Creatinine 1.6 mg/dL (0.8-1.3) H 05/02/21 05:34 Estimated GFR 54 ml/min 05/02/21 05:34 BUN/Creatinine Ratio 11 % 05/02/21 05:34 Glucose 189 mg/dL (75-100) H 05/02/21 05:34 Calcium 9.5 mg/dL (8.4-10.2) 05/02/21 05:34 Total Bilirubin 0.60 mg/dL (0.1-1.2) 05/02/21 05:34 AST 30 units/L (5-40) 05/02/21 05:34 ALT 13 units/L (7-56) 05/02/21 05:34 Alkaline Phosphatase 109 units/L (35-129) 05/02/21 05:34 Troponin T < 0.010 ng/mL (0.00-0.029) 05/01/21 11:33 Total Protein 8.9 g/dL (6.3-8.2) H 05/02/21 05:34 Albumin 4.0 g/dL (3.9-5) 05/02/21 05:34 Albumin/Globulin Ratio 0.8 % 05/02/21 05:34 TSH 2.660 mlU/mL (0.270-4.200) 05/01/21 11:33 Short CBC 05/01/21 05/02/21 Range/Units 11:33 05:34 WBC 4.8 6.1 (4.5-11.0) K/mm3 Hgb 16.9 H 16.7 H (11.8-15.2) gm/dl Hct 53.1 H 52.5 H (35.5-45.6) % Plt Count 333 393 (140-440) K/mm3 BMP 05/01/21 05/02/21 11:33 05:34 Sodium 137 130 L D Potassium 4.7 4.2 Chloride 96.6 L 95.2 L Carbon Dioxide 24 20 L BUN 12 18 Creatinine 1.1 1.6 H Glucose 226 H 189 H Calcium 10.2 9.5 Cardiac Enzymes 05/01/21 Range/Units 11:33 Troponin T < 0.010 (0.00-0.029) ng/mL Liver Function 05/01/21 05/02/21 Range/Units 11:33 05:34 Total Bilirubin 0.50 0.60 (0.1-1.2) mg/dL AST 36 30 (5-40) units/L ALT 15 13 (7-56) units/L Alkaline Phosphatase 119 109 (35-129) units/L Albumin 4.5 4.0 (3.9-5) g/dL Assessment and Plan Advance Directives: Yes (Full code) VTE prophylaxis?: Chemical Plan of care discussed with patient/family: Yes - Patient Problems (1) Hypertensive emergency Current Visit: Yes Status: Acute Plan to address problem: Patient has a very high blood pressure Controlled to some extent in the emergency room Patient started on valsartan 1 6212, Coreg through 12 and hydralazine 50 mg isacc ry 8 Hydralazine 10 mg IV every 3 hours Admit to telemetry (2) Hyperglycemia Current Visit: Yes Status: Acute Plan to address problem: Patient may be having type 2 diabetes Not on any medications Accu-Cheks and insulin coverage Check hemoglobin A1c Hypoglycemics to be started by the primary team Diet education (3) Fall Current Visit: Yes Status: Acute Qualifiers: Encounter type: initial encounter Qualified Code(s): W19.XXXA - Unspecified fall, initial encounter Plan to address problem: Fall was yesterday Complained of left lower extremity weakness which was transient Not in favor of TIA or stroke Neuro consult (4) DVT prophylaxis Current Visit: Yes Status: Acute Plan to address problem: On heparin and GI prophylaxis (5) Advance care planning Current Visit: Yes Status: Acute Plan to address problem: Disease education conducted, care plan discussed, diagnosis discussed, prognosis discussed, patient is full code. Patient acknowledged understanding and agreement with care plan. +30 minutes.
[2021-05-02] MEDS: INSULIN LISPRO 100 UNIT/ML SUB-Q SCH ×4 (08:00→21:59)
--- NOTE | 2021-05-02 08:49 | Electrocardiograph Report ---
[facility] Test Date: 2021-05-01 Test Time: 12:17:40 Pat Name: BRI ANGEL Department: Room: A483 Gender: M Hospital Internship: [facility] : 1965 Requested By: DENNY FINK Order Number: [id number] Reading MD: Dick Guerrero Measurements Intervals [place] Rate: 92 P: 75 NE: 181 QRS: 52 QRSD: 104 T: 91 QT: 404 QTc: 499 Interpretive Statements Sinus rhythm LAE, consider biatrial enlargement Left ventricular hypertrophy Nonspecific T abnormalities, lateral leads No previous ECG available for comparison Electronically Signed On 05-02-2021 8:49:36 EST by Dick Guerrero
[2021-05-02] MEDS: HYDROmorphone 1 MG/1 ML INJ IV PRN ×4 (09:05→21:53)
[2021-05-02] MEDS: HEPARIN 5,000 UNIT/1 ML VIAL SUB-Q SCH ×2 (09:34→21:45)
[2021-05-02] MEDS: carvediloL 12.5 MG TAB PO SCH ×2 (09:34→21:45)
[2021-05-03] MEDS: VALSARTAN 160MG TAB PO SCH (05:47)
[2021-05-03] MEDS: hydrALAZINE 25 MG TAB PO SCH ×3 (05:47→22:18)
[2021-05-03 06:32] LABS: Hematocrit 51.9 % (35.5-45.6); Hemoglobin 16.4 gm/dl (11.8-15.2); Mean Corpuscular HGB Conc 32 % (32-34); Mean Corpuscular Volume 82 fl (84-94); Platelet Count 341 K/mm3 (140-440); Red Blood Count 6.31 M/mm3 (3.65-5.03); Red Cell Distribution Width 13.1 % (13.2-15.2)
[2021-05-03 06:46] LABS: Calcium 9.7 mg/dL (8.4-10.2)
[2021-05-03] MEDS ORDERED: DEXTROSE 5% IN WATER 1,000 ML IV SCH (08:00)
[2021-05-03 08:39] LABS: Hypochromasia 1+; Platelet Estimate Consistent w Auto; Total Cells Counted 100
[2021-05-03] MEDS ORDERED: LACTATED RINGERS 1,000 ML IV ONE (09:00)
[2021-05-03] MEDS: INSULIN LISPRO 100 UNIT/ML SUB-Q SCH ×4 (10:12→22:20)
[2021-05-03] MEDS: HEPARIN 5,000 UNIT/1 ML VIAL SUB-Q SCH ×2 (10:16→22:20)
[2021-05-03] MEDS: carvediloL 12.5 MG TAB PO SCH ×2 (10:16→22:19)
[2021-05-03] MEDS: NIFEdipine XL 30 MG TAB PO SCH (10:16)
[2021-05-03] MEDS: oxyCODONE /ACETAMINOPHEN 5-325MG TAB PO PRN ×2 (10:55→22:19)
--- NOTE | 2021-05-03 13:05 | Consultation ---
History of Present Illness Consult date: 05/03/21 Reason for Consult: Fall ,left leg weakness,HTN History of present illness: Fall yesterday. High pressure since a.m. today. History of present illness: 56-year-old -[place] male comes to the emergency department because of a fall yesterday afternoon. Patient is also complaining of left leg weakness which resolved within couple of hours. Daughter called EMS this morning and patient had a high blood pressure of 240 systolic and 130 diastolic. Patient complains of generalized headache. No vision changes slurred speech or any weakness. Patient does not take any medications. Patient is supposed to be t aking lisinopril with which he is noncompliant. No chest pain. -On admission pt. had CT brain and CTAbrain and neck are unremarkable he was admitted for further work up he is not a candidate for TPA nor thrombectomy due to time fram he denied any hx of CVA before he smokes average one back a day rarley alcohol not compling with his BP medications he use Marijuana intermittently - Past Medical History --Hypertension: Yes --Additional medical history: Not taking any blood pressure medications Patient had a left hand crush injury. - Social History Smoking Status: Current Every Day Smoker Substance Use Type: Alcohol, Marijuana, Prescribed - Medications Home Medications: Home Medications Medication Instructions Recorded Confirmed Last Taken Type lisinopriL [Prinivil] 10 mg PO DAILY #30 tablet 03/28/17 05/01/21 Unknown Rx Clindamycin [Clindamycin CAP] 300 mg PO Q6H #40 capsule 04/07/17 05/01/21 Unknown Rx traMADoL [Ultram] 50 mg PO Q6HR PRN #20 tablet 04/07/17 05/01/21 Unknown Rx Review of Systems ROS: Stated complaint: HYPERTENSION/POSS CVA Other details as noted in HPI Comment: All other systems reviewed and negative Constitutional: weakness. denies: chills, fever Eyes: denies: eye pain, vision change ENT: denies: ear pain, throat pain Respiratory: denies: cough, orthopnea Cardiovascular: denies: chest pain, palpitations Gastrointestinal: denies: abdominal pain, vomiting Genitourinary: denies: dysuria, discharge Musculoskeletal: denies: back pain, arthralgia Skin: denies: rash, lesions Neurological: headache, weakness, other (dizziness). denies: numbness, paresthesias Medications and Allergies Allergies Allergy/AdvReac Type Severity Reaction Status Date / Time No Known Allergies Allergy Verified 05/01/21 11:47 Home Medications Medication Instructions Recorded Confirmed Last Taken Type lisinopriL [Prinivil] 10 mg PO DAILY #30 tablet 03/28/17 05/01/21 Unknown Rx Clindamycin [Clindamycin CAP] 300 mg PO Q6H #40 capsule 04/07/17 05/01/21 Unknown Rx traMADoL [Ultram] 50 mg PO Q6HR PRN #20 tablet 04/07/17 05/01/21 Unknown Rx Active Meds: Active Medications Acetaminophen (Acetaminophen 325 Mg Tab) 650 mg PO Q4H PRN PRN Reason: Pain MILD(1-3)/Fever >100.5/VARGAS Carvedilol (Carvedilol 12.5 Mg Tab) 12.5 mg PO BID [facility] Last Admin: 05/01/21 22:17 Dose: 12.5 mg Heparin Sodium (Porcine) (Heparin 5,000 Unit/1 Ml Vial) 5,000 unit SUB-Q Q12HR [facility] Last Admin: 05/01/21 22:18 Dose: 5,000 unit Hydralazine HCl (Hydralazine 20 Mg/1 Ml Inj) 10 mg IV Q2H PRN PRN Reason: Blood Pressure Last Admin: 05/02/21 00:17 Dose: 10 mg Hydralazine HCl (Hydralazine 25 Mg Tab) 50 mg PO Q8HR [facility] Last Admin: 05/02/21 06:21 Dose: 50 mg Hydromorphone HCl (Hydromorphone 1 Mg/1 Ml Inj) 0.5 mg IV Q3H PRN PRN Reason: Pain , Severe (7-10) Last Admin: 05/01/21 21:02 Dose: 0.5 mg Ondansetron HCl (Ondansetron 4 Mg/2 Ml Inj) 4 mg IV Q8H PRN PRN Reason: Nausea And Vomiting Oxycodone/Acetaminophen (Oxycodone /Acetaminophen 5-325mg Tab) 1 tab PO Q6H PRN PRN Reason: Pain, Moderate (4-6) Sodium Chloride (Sodium Chloride 0.9% 10 Ml Flush Syringe) 10 ml IV BID [facility] Last Admin: 05/01/21 22:18 Dose: 10 ml Sodium Chloride (Sodium Chloride 0.9% 10 Ml Flush Syringe) 10 ml IV PRN PRN PRN Reason: LINE FLUSH Valsartan (Valsartan 160mg Tab) 160 mg PO Q12H [facility] Last Admin: 05/02/21 06:22 Dose: 160 mg Medications and Allergies Allergies Allergy/AdvReac Type Severity Reaction Status Date / Time No Known Allergies Allergy Verified 05/01/21 11:47 Home Medications Medication Instructions Recorded Confirmed Last Taken Type lisinopriL [Prinivil] 10 mg PO DAILY #30 tablet 03/28/17 05/01/21 Unknown Rx Clindamycin [Clindamycin CAP] 300 mg PO Q6H #40 capsule 04/07/17 05/01/21 Unknown Rx traMADoL [Ultram] 50 mg PO Q6HR PRN #20 tablet 04/07/17 05/01/21 Unknown Rx Active Meds: Active Medications Acetaminophen (Acetaminophen 325 Mg Tab) 650 mg PO Q4H PRN PRN Reason: Pain MILD(1-3)/Fever >100.5/VARGAS Carvedilol (Carvedilol 12.5 Mg Tab) 12.5 mg PO BID [facility] Last Admin: 05/03/21 10:16 Dose: 12.5 mg Heparin Sodium (Porcine) (Heparin 5,000 Unit/1 Ml Vial) 5,000 unit SUB-Q Q12HR [facility] Last Admin: 05/03/21 10:16 Dose: 5,000 unit Hydralazine HCl (Hydralazine 20 Mg/1 Ml Inj) 10 mg IV Q2H PRN PRN Reason: Blood Pressure Last Admin: 05/02/21 00:17 Dose: 10 mg Hydralazine HCl (Hydralazine 25 Mg Tab) 50 mg PO Q8HR [facility] Last Admin: 05/03/21 05:47 Dose: 50 mg Hydromorphone HCl (Hydromorphone 1 Mg/1 Ml Inj) 0.5 mg IV Q3H PRN PRN Reason: Pain , Severe (7-10) Last Admin: 05/02/21 21:53 Dose: 0.5 mg Insulin Human Lispro (Insulin Lispro 100 Unit/Ml) 0 unit SUB-Q [facility]; Pro tocol Last Admin: 05/03/21 10:12 Dose: Not Given Nifedipine (Nifedipine Xl 30 Mg Tab) 30 mg PO QDAY [facility] Last Admin: 05/03/21 10:16 Dose: 30 mg Ondansetron HCl (Ondansetron 4 Mg/2 Ml Inj) 4 mg IV Q8H PRN PRN Reason: Nausea And Vomiting Oxycodone/Acetaminophen (Oxycodone /Acetaminophen 5-325mg Tab) 1 tab PO Q6H PRN PRN Reason: Pain, Moderate (4-6) Last Admin: 05/03/21 10:55 Dose: 1 tab Sodium Chloride (Sodium Chloride 0.9% 10 Ml Flush Syringe) 10 ml IV BID [facility] Last Admin: 05/02/21 21:46 Dose: 10 ml Sodium Chloride (Sodium Chloride 0.9% 10 Ml Flush Syringe) 10 ml IV PRN PRN PRN Reason: LINE FLUSH Physical Examination - Vital Signs Vital Signs: Vital Signs Pulse Resp Pulse Ox 84 13 95 05/01/21 11:22 05/01/21 11:22 05/01/21 11:22 - Constitutional General appearance: uncomfortable - EENT EENT: Present: PERRL - Respiratory Respiratory: Present: chest non-tender, lungs clear - Cardiovascular Cardiovascular: Present: regular rate, normal S1, normal S2 Extremities: Present: no peripheral edema bilatateraly, no clubbing, cyanosis - Gastrointestinal Gastrointestinal: Present: normoactive bowel sounds - Integumentary Integumentary: Present: normal - Neurologic Cranial nerve examination: PERRL, EOMI, facial droop Speech examination: other (slurred speech,no aphasia ) Detailed motor examination: other (right side is intact , left upper and lower are 1/5 , no sensory deficit , reflexes slightly brisker left , unable to walk.) - Level of Consciousness 1a. Level of Consciousness: alert/keenly responsive - LOC Questions 1b. LOC Questions: answers both correctly - LOC Command 1c. LOC Commands: performs tasks correctly - Best Gaze 2. Best Gaze: normal - Visual 3. Visual: no visual loss - Facial Palsy 4. Facial Palsy: minor paralysis - Motor Arm 5a. Motor Arm Left: no gravity effort 5b. Motor Arm Right: no drift - Motor Leg 6a. Motor Leg Left: no gravity effort 6b. Motor Leg Right: no drift - Limb Ataxia 7. Limb Ataxia: absent - Sensory 8. Sensory: normal - Best Language 9. Best Language: no aphasia - Dysarthria 10. Dysarthria: normal - Extinction and Inattention 11. Extinction/Inattention: no abnormality - Scoring Total Score: 7 Stroke Severity: Moderate Stroke Results - Laboratory Findings CBC and BMP: 05/03/21 05:29 05/03/21 05:29 Abnormal Lab Findings: Abnormal Labs 05/01/21 05/01/21 05/02/21 11:33 11:33 05:34 RBC 6.36 H 6.37 H Hgb 16.9 H 16.7 H Hct 53.1 H 52.5 H MCV 83 L 83 L MCH 27 L 26 L RDW 13.0 L 13.1 L [place] % (Auto) 12.3 H 10.6 H Lymph # (Auto) 1.1 L Sodium Chloride 96.6 L Carbon Dioxide BUN Creatinine Glucose 226 H POC Glucose Hemoglobin A1c Total Protein 8.8 H 05/02/21 05/02/21 05/02/21 05:34 08:07 11:30 RBC Hgb Hct MCV MCH RDW [place] % (Auto) Lymph # (Auto) Sodium 130 L D Chloride 95.2 L Carbon Dioxide 20 L BUN Creatinine 1.6 H Glucose 189 H POC Glucose 158 H 190 H Hemoglobin A1c Total Protein 8.9 H 05/02/21 05/02/21 05/02/21 15:51 16:12 20:57 RBC Hgb Hct MCV MCH RDW [place] % (Auto) Lymph # (Auto) Sodium Chloride Carbon Dioxide BUN Creatinine Glucose POC Glucose 119 H 152 H Hemoglobin A1c 7.3 H Total Protein 05/03/21 05/03/21 05/03/21 05:29 05:29 08:03 RBC 6.31 H Hgb 16.4 H Hct 51.9 H MCV 82 L MCH 26 L RDW 13.1 L [place] % (Auto) Lymph # (Auto) Sodium 134 L Chloride 96.5 L Carbon Dioxide 21 L BUN 30 H Creatinine 1.8 H Glucose 143 H POC Glucose 147 H Hemoglobin A1c Total Protein 05/03/21 11:20 RBC Hgb Hct MCV MCH RDW [place] % (Auto) Lymph # (Auto) Sodium Chloride Carbon Dioxide BUN Creatinine Glucose POC Glucose 147 H Hemoglobin A1c Total Protein Assessment and Plan Assessment and Plan 56-year-old -[place] male comes to the emergency department because of a fall yesterday afternoon. Patient is also complaining of left leg weakness which resolved within couple of hours. Daughter called EMS this morning and patient had a high blood pressure of 240 systolic and 130 diastolic. Patient complains of generalized headache. No vision changes slurred speech or any weakness. Patient does not take any medications. Patient is supposed to be taking lisinopril with which he is noncompliant. No chest pain. -On admission pt. had CT brain and CTAbrain and neck are unremarkable he was admitted for further work up he is not a candidate for TPA nor thrombectomy due to time fram he denied any hx of CVA before he smokes average one back a day rarley alcohol not compling with his BP medications he use Marijuana intermittently - Patient Problems # CVA -pt. presented with intermittent dizziness and left side weakness with increase fall since 05/01 -CT brain and CTA brain and neck are unremarkable -BP elevation initial 240/130 - NIH today is #7 -he is with dense left hemiplegia with finding is suggestive of possible left BG lacunar infarct vs pontine infarct -MRI brain is pending -Start ASA 325 mg daily -Lipitor 40 mg -PT/ST evaluate -Lipid profil -A1C#7.3 -echo cardiogram -Control Bp<150/80{ symptoms are 2 days old } -pt. is a rehabilitation candidate # Hypertensive emergency -Initial BP 240/130 -Patient started on valsartan 1 6212, Coreg through 12 and hydralazine 50 mg every 8 -Hydralazine 10 mg IV every 3 hours -Admit to telemetry # Hyperglycemia -Patient may be having type 2 diabetes -Not on any medications -Accu-Cheks and insulin coverage -Check hemoglobin A1c #7.3 -Hypoglycemics to be started by the primary team -Diet education # Fall - related to above # Smoker - Average 1 PPD for years -Marijuana intake -stop smoking and recreational drug # DVT prophylaxis On heparin and GI prophylaxis
[2021-05-03 14:01] LABS: Chol/HDL Ratio 4.75 %
[2021-05-03] MEDS: ASPIRIN EC 325 MG TAB PO SCH (16:14)
--- NOTE | 2021-05-03 16:52 | Cat Scan Report ---
CT head/brain wo con INDICATION / CLINICAL INFORMATION: 56 years Male; concern for stroke + L-sided weakness. TECHNIQUE: Routine CT head without contrast. All CT scans at this location are performed using CT dos e reduction for ALARA by means of automated exposure control. COMPARISON: 05/01/2021 FINDINGS: BRAIN / INTRACRANIAL CONTENTS: Lacunar infarct is seen at the junction of the posterior limb of the i nternal capsule on the lateral thalamic region on the right. This finding is seen on prior exam, but may have slightly increased in size on the current study. No signs of hemorrhage. Small lacunar infarcts seen in the left thalamic region, as well as the lateral gangliocapsular regio n on the right. These findings are not significantly changed from prior. Otherwise, no acute hemorrhage, mass effect, midline shift, hydrocephalus, or acute, large territori al infarct. No signs of significant atrophy or chronic infarct. There are [id number] areas of increased signal intensity on FLAIR imaging in the white matter o f the cerebral hemispheres. These are nonspecific findings and may be related to microangiopathy (hyp ertension, diabetes, atherosclerosis), given the patient's age. Pontine disease suspected. CRANIOCERVICAL JUNCTION: No significant abnormality. ORBITS: No significant abnormality of visualized orbits. SINUSES / MASTOIDS: Mucous retention cysts/polyps are seen to a mild degree in the maxillary antra. ADDITIONAL FINDINGS: Atherosclerotic disease is seen in the anterior circulation. IMPRESSION: 1. No focal mass, hemorrhage, hydrocephalus, or acute, large territorial infarct. 2. Findings in the lateral thalamic region on the right may have mildly progressed in appearance when compared with prior. However, this finding may be related to volume averaging. Follow-up with diffus ion imaging by MRI, as clinically warranted. Signer Name: Samir Nolasco MD, III Signed: 05/03/2021 4:47 PM Workstation Name: [id number]
--- NOTE | 2021-05-03 17:14 | Cat Scan Report ---
CTA NECK WITH CONTRAST HISTORY: "Concern for stroke" COMPARISON: None. TECHNIQUE: Routine CTA of the neck was performed. 3-D/MIP reformats were postprocessed. Percentage s tenosis is determined by direct quantitative measurements of diseased internal carotid artery diamete r compared with normal distal internal carotid artery reference segments or by criteria similar to NA SCET where applicable.All CT scans at this location are performed using CT dose reduction for ALARA b y means of automated exposure control CONTRAST: 100 ml of Omnipaque 350 FINDINGS: Aortic arch: No significant abnormality. Cervical vertebral arteries: No significant abnormality. Common carotid arteries: No significant abnormality. Carotid bifurcations: Right carotid bifurcation: Proximal right internal carotid artery is patulous; no stenoses Left carotid bifurcation: Normal Cervical internal carotid arteries: No significant abnormality. Additional findings: None. IMPRESSION: 1. No significant abnormality. CTA HEAD WITH CONTRAST Intracranial vertebral arteries: Right vertebral artery normal; less than 50% stenoses in the very di stal left vertebral artery near the basilar formation Basilar artery: No significant abnormality. Posterior cerebral arteries: No significant abnormality. Intracranial internal carotid arteries: No significant abnormality. Anterior cerebral arteries: No significant abnormality. Middle cerebral arteries: No significant abnormality. Dural venous sinuses:Not optimally opacified. No significant abnormality. Additional findings: None. IMPRESSION: 1. No significant abnormality. Signer Name: Natalya Wisdom MD Signed: 05/03/2021 5:10 PM Workstation Name: [id number]
--- NOTE | 2021-05-03 17:23 | Magnetic Resonance Report ---
MR brain wo con INDICATION / CLINICAL INFORMATION: 56 years Male; Concern for stroke + L-sided weakness. TECHNIQUE: Multiplanar, multisequence MR images of the brain were obtained. COMPARISON: None available. FINDINGS: BRAIN / INTRACRANIAL CONTENTS: There is a curvilinear acute infarct along the lateral right thalamus and posterior limb of the internal capsule measuring 1.4 cm in greatest AP dimension. A smaller focus is seen more anteriorly as well as within the left thalamus. Additionally, there is also 5 mm focus of acute infarction along the posterior left insular region with 8 mm focus involving the body of the corpus callosum. Small foci are also seen along the anterior right frontal subcortical region as wel l as the posterior right parietal white matter. The findings may reflect embolic process given the di ffering vascular distributions. There is otherwise moderate to cerebral and pontine white matter disease most consistent with microva scular angiopathy. There are old infarcts involving the [place], left thalamus and right frontal lobe. T he above microvascular changes are advanced for the patient's age. There is mild cerebral atrophy. Th e ventricular system is correspondingly appropriate in size and configuration. CRANIOCERVICAL JUNCTION: No significant abnormality. VASCULAR FLOW-VOIDS: No significant abnormality. ORBITS: No significant abnormality of visualized orbits. SINUSES / MASTOIDS: There is minimal mucosal thickening along the inferior maxillary sinuses. ADDITIONAL FINDINGS: None. IMPRESSION: 1. There are multiple scattered foci of acute infarction including along the right lateral thalamus a nd posterior left insula as well as within the body of the corpus callosum and anterior right frontal subcortical region as detailed above. 2. The motion degrades image quality. However, there is otherwise moderate microvascular angiopathy w ith old infarcts as described. Signer Name: Cristino Love MD Signed: 05/03/2021 5:18 PM Workstation Name: [id number]
--- NOTE | 2021-05-03 18:33 | Progress Note ---
Assessment and Plan Assessment and plan: MRI brain revealing multiple scattered foci of acute infarction including along the right lateral thalamus and posterior left insula as well as within the body of the corpus callosum and anterior right frontal subcortical region" #Acute CVA Unremarkable imaging: CT head noncontrast, CTA head, CTA neck MRI brain revealing multiple scattered foci of acute infarction including along the right lateral thalamus and posterior left insula as well as within the body of the corpus callosum and anterior right frontal subcortical region" Starting aspirin 325 mg daily, atorvastatin 40 mg daily Neurology consulted; appreciate recs Physical therapy/Occupational Therapy/speech therapy consulted; pending recs Pending TTE to rule out PFO Continue to monitor #Hypertensive emergencyresolved #Hypertension - home medications: Lisinopril 10 mg daily - current medications: Coreg 12.5 mg twice daily, p.o. hydralazine 50 mg every 8 hours, nifedipine 30 mg daily - SBP goal <160 and DBP goal <90 while inpatient - continue to monitor #Non-insulin dependent type II diabetes mellitus (newly diagnosed) - hemoglobin A1c: 7.3 - home regimen: None - current regimen: Metformin 500 mg twice daily - blood glucose goal 140-180 while inpatient - continue to monitor #Ground-level fall Negative imaging #Morbid obesity #Weight loss counseling #Exercise counseling - BMI 37.5 - Counseled patient on the importance of weight loss, incorporating exercise, and dietary changes (lean meats, fresh fruits and vegetables, and water intake). Patient expresses understanding. - Time: +15 min #Advanced care planning -Disease education conducted, care plan discussed, diagnoses discussed, prognosis discussed, and patient acknowledges understanding with care plan -Time: +30 min Disposition Plan: Continue medical management Total Time Spent with Patient (Minutes): 45 minutes History Interval history: No acute events overnight. Hospitalist Physical - Constitutional Vitals: Temp Pulse Resp BP Pulse Ox 97.7 F 84 18 174/94 96 05/03/21 16:03 05/03/21 16:03 05/03/21 16:03 05/03/21 16:03 05/03/21 16:03 General appearance: Present: no acute distress, well-nourished, obese - EENT Eyes: Present: PERRL, EOM intact ENT: hearing intact, clear oral mucosa, dentition normal - Neck Neck: Present: supple, normal ROM - Respiratory Respiratory effort: normal Respiratory: bilateral: CTA - Cardiovascular Rhythm: regular Heart Sounds: Present: S1 & S2 - Extremities Extremities: no ischemia, pulses intact, pulses symmetrical, No edema, normal temperature, normal color Peripheral Pulses: within normal limits - Abdominal General gastrointestinal: soft, non-tender, non-distended, normal bowel sounds - Integumentary Integumentary: Present: clear, warm, dry - Psychiatric Psychiatric: appropriate mood/affect, intact judgment & insight, memory intact, cooperative - Neurologic Neurologic: CNII-XII intact, focal deficits (Left-sided weakness) - Allied Health Allied health notes reviewed: nursing HEART Score - HEART Score Age: 45-65 Risk factors: 1-2 risk factors Troponin: Troponin T < 0.010 ng/mL (0.00-0.029) 05/01/21 11:33 Troponin: < normal limit - Critical Actions Critical Actions: 0-3 pts:0.9-1.7%risk of adverse cardiac event.Candidate for discharge Results - Labs CBC & Chem 7: 05/03/21 05:29 05/03/21 05:29 Labs: Laboratory Last Values WBC 5.7 K/mm3 (4.5-11.0) 05/03/21 05:29 RBC 6.31 M/mm3 (3.65-5.03) H 05/03/21 05:29 Hgb 16.4 gm/dl (11.8-15.2) H 05/03/21 05:29 Hct 51.9 % (35.5-45.6) H 05/03/21 05:29 MCV 82 fl (84-94) L 05/03/21 05:29 MCH 26 pg (28-32) L 05/03/21 05:29 MCHC 32 % (32-34) 05/03/21 05:29 RDW 13.1 % (13.2-15.2) L 05/03/21 05:29 Plt Count 341 K/mm3 (140-440) 05/03/21 05:29 Lymph % (Auto) 25.5 % (13.4-35.0) 05/02/21 05:34 [place] % (Auto) [employer] 05/03/21 05:29 Eos % (Auto) 0.7 % (0.0-4.3) 05/02/21 05:34 Baso % (Auto) 1.0 % (0.0-1.8) 05/02/21 05:34 Lymph # (Auto) 1.6 K/mm3 (1.2-5.4) 05/02/21 05:34 [place] # (Auto) 0.6 K/mm3 (0.0-0.8) 05/02/21 05:34 Eos # (Auto) 0.0 K/mm3 (0.0-0.4) 05/02/21 05:34 Baso # (Auto) 0.1 K/mm3 (0.0-0.1) 05/02/21 05:34 Add Manual Diff Complete 05/03/21 05:29 Total Counted 100 05/03/21 05:29 Seg Neutrophils % 62.2 % (40.0-70.0) 05/02/21 05:34 Seg Neuts % (Manual) 58.0 % (40.0-70.0) 05/03/21 05:29 Band Neutrophils % 0 % 05/03/21 05:29 Lymphocytes % (Manual) 32.0 % (13.4-35.0) 05/03/21 05:29 Reactive Lymphs % (Man) 0 % 05/03/21 05:29 Monocytes % (Manual) 7.0 % (0.0-7.3) 05/03/21 05:29 Eosinophils % (Manual) 2.0 % (0.0-4.3) 05/03/21 05:29 Basophils % (Manual) 1.0 % (0.0-1.8) 05/03/21 05:29 Metamyelocytes % 0 % 05/03/21 05:29 Myelocytes % 0 % 05/03/21 05:29 Promyelocytes % 0 % 05/03/21 05:29 Blast Cells % 0 % 05/03/21 05:29 Nucleated RBC % Not Reportable 05/03/21 05:29 Seg Neutrophils # 3.8 K/mm3 (1.8-7.7) 05/02/21 05:34 Seg Neutrophils # Man 3.3 K/mm3 (1.8-7.7) 05/03/21 05:29 Band Neutrophils # 0.0 K/mm3 05/03/21 05:29 Lymphocytes # (Manual) 1.8 K/mm3 (1.2-5.4) 05/03/21 05:29 Abs React Lymphs (Man) 0.0 K/mm3 05/03/21 05:29 Monocytes # (Manual) 0.4 K/mm3 (0.0-0.8) 05/03/21 05:29 Eosinophils # (Manual) 0.1 K/mm3 (0.0-0.4) 05/03/21 05:29 Basophils # (Manual) 0.1 K/mm3 (0.0-0.1) 05/03/21 05:29 Metamyelocytes # 0.0 K/mm3 05/03/21 05:29 Myelocytes # 0.0 K/mm3 05/03/21 05:29 Promyelocytes # 0.0 K/mm3 05/03/21 05:29 Blast Cells # 0.0 K/mm3 05/03/21 05:29 WBC Morphology Not Reportable 05/03/21 05:29 Hypersegmented Neuts Not Reportable 05/03/21 05:29 Hyposegmented Neuts Not Reportable 05/03/21 05:29 Hypogranular Neuts Not Reportable 05/03/21 05:29 Smudge Cells Not Reportable 05/03/21 05:29 Toxic Granulation Not Reportable 05/03/21 05:29 Toxic Vacuolation Not Reportable 05/03/21 05:29 Dohle Bodies Not Reportable 05/03/21 05:29 Pelger-Huet Anomaly Not Reportable 05/03/21 05:29 Marleny Rods Not Reportable 05/03/21 05:29 Platelet Estimate Consistent w auto 05/03/21 05:29 Clumped Platelets Not Reportable 05/03/21 05:29 Plt Clumps, EDTA Not Reportable 05/03/21 05:29 Large Platelets Not Reportable 05/03/21 05:29 Giant Platelets Not Reportable 05/03/21 05:29 Platelet Satelliting Not Reportable 05/03/21 05:29 Plt Morphology Comment Not Reportable 05/03/21 05:29 RBC Morphology Not Reportable 05/03/21 05:29 Dimorphic RBCs Not Reportable 05/03/21 05:29 Polychromasia Not Reportable 05/03/21 05:29 Hypochromasia 1+ 05/03/21 05:29 Poikilocytosis Not Reportable 05/03/21 05:29 Anisocytosis Not Reportable 05/03/21 05:29 Microcytosis Not Reportable 05/03/21 05:29 Macrocytosis Not Reportable 05/03/21 05:29 Spherocytes Not Reportable 05/03/21 05:29 Pappenheimer Bodies Not Reportable 05/03/21 05:29 Sickle Cells Not Reportable 05/03/21 05:29 Target Cells Not Reportable 05/03/21 05:29 Tear Drop Cells Not Reportable 05/03/21 05:29 Ovalocytes Not Reportable 05/03/21 05:29 Helmet Cells Not Reportable 05/03/21 05:29 [place] Bodies Not Reportable 05/03/21 05:29 [place] Rings Not Reportable 05/03/21 05:29 [place] Cells Not Reportable 05/03/21 05:29 Bite Cells Not Reportable 05/03/21 05:29 Crenated Cell Not Reportable 05/03/21 05:29 Elliptocytes Not Reportable 05/03/21 05:29 Acanthocytes (Spur) Not Reportable 05/03/21 05:29 Rouleaux Not Reportable 05/03/21 05:29 Hemoglobin C Crystals Not Reportable 05/03/21 05:29 Schistocytes Not Reportable 05/03/21 05:29 Malaria parasites Not Reportable 05/03/21 05:29 Jed Bodies Not Reportable 05/03/21 05:29 Hem Pathologist Commnt No 05/03/21 05:29 PT 13.2 Sec. (12.2-14.9) 05/01/21 11:33 INR 0.90 (0.87-1.13) 05/01/21 11:33 Sodium 134 mmol/L (137-145) L 05/03/21 05:29 Potassium 4.2 mmol/L (3.6-5.0) 05/03/21 05:29 Chloride 96.5 mmol/L (98-107) L 05/03/21 05:29 Carbon Dioxide 21 mmol/L (22-30) L 05/03/21 05:29 Anion Gap 21 mmol/L 05/03/21 05:29 BUN 30 mg/dL (9-20) H 05/03/21 05:29 Creatinine 1.8 mg/dL (0.8-1.3) H 05/03/21 05:29 Estimated GFR 47 ml/min 05/03/21 05:29 BUN/Creatinine Ratio 17 % 05/03/21 05:29 Glucose 143 mg/dL (75-100) H 05/03/21 05:29 POC Glucose 155 mg/dL (70-105) H 05/03/21 16:17 Hemoglobin A1c 7.3 % (4-6) H 05/02/21 15:51 Calcium 9.7 mg/dL (8.4-10.2) 05/03/21 05:29 Total Bilirubin 0.60 mg/dL (0.1-1.2) 05/02/21 05:34 AST 30 units/L (5-40) 05/02/21 05:34 ALT 13 units/L (7-56) 05/02/21 05:34 Alkaline Phosphatase 109 units/L (35-129) 05/02/21 05:34 Troponin T < 0.010 ng/mL (0.00-0.029) 05/01/21 11:33 Total Protein 8.9 g/dL (6.3-8.2) H 05/02/21 05:34 Albumin 4.0 g/dL (3.9-5) 05/02/21 05:34 Albumin/Globulin Ratio 0.8 % 05/02/21 05:34 Triglycerides 98 mg/dL (2-149) 05/03/21 Unknown Cholesterol 176 mg/dL (50-199) 05/03/21 Unknown LDL Cholesterol Direct 118 mg/dL (50-130) 05/03/21 Unknown HDL Cholesterol 37 mg/dL (40-59) L 05/03/21 Unknown Cholesterol/HDL Ratio 4.75 % 05/03/21 Unknown TSH 2.660 mlU/mL (0.270-4.200) 05/01/21 11:33 Avendaño/IV: Voiding Method Urinal Active Medications - Current Medications Current Medications: Generic Name Dose Route Start Last Admin Trade Name Freq PRN Reason Stop Dose Admin Acetaminophen 650 mg 05/01/21 17:16 Acetaminophen 325 Mg Tab PO Q4H PRN Pain MILD(1-3)/Fever >100.5/VARGAS Aspirin 325 mg 05/03/21 14:00 05/03/21 16:14 Aspirin Ec 325 Mg Tab PO Not Given QDAY [facility] Atorvastatin Calcium 40 mg 05/03/21 22:00 Atorvastatin 40 Mg Tab PO QHS GENTRY Carvedilol 12.5 mg 05/01/21 22:00 05/03/21 10:16 Carvedilol 12.5 Mg Tab PO 12.5 mg BID GENTRY Administration Heparin Sodium (Porcine) 5,000 unit 05/01/21 22:00 05/03/21 10:16 Heparin 5,000 Unit/1 Ml Vial SUB-Q 5,000 unit Q12HR GENTRY Administration Hydralazine HCl 10 mg 05/01/21 17:28 05/02/21 00:17 Hydralazine 20 Mg/1 Ml Inj IV 10 mg Q2H PRN Administration Blood Pressure Hydralazine HCl 50 mg 05/01/21 18:00 05/03/21 16:14 Hydralazine 25 Mg Tab PO Not Given Q8HR [facility] Hydromorphone HCl 0.5 mg 05/01/21 20:53 05/02/21 21:53 Hydromorphone 1 Mg/1 Ml Inj IV 0.5 mg Q3H PRN Administration Pain , Severe (7-10) Insulin Human Lispro 0 unit 05/02/21 07:30 05/03/21 17:03 Insulin Lispro 100 Unit/Ml SUB-Q Not Given ACHS [facility] Protocol Nifedipine 30 mg 05/03/21 10:00 05/03/21 10:16 Nifedipine Xl 30 Mg Tab PO 30 mg QDAY [facility] Administration Ondansetron HCl 4 mg 05/01/21 17:16 Ondansetron 4 Mg/2 Ml Inj IV Q8H PRN Nausea And Vomiting Oxycodone/Acetaminophen 1 tab 05/01/21 17:16 05/03/21 10:55 Oxycodone /Acetaminophen 5-325mg Tab PO 1 tab Q6H PRN Administration Pain, Moderate (4-6) Sodium Chloride 10 ml 05/01/21 22:00 05/03/21 13:48 Sodium Chloride 0.9% 10 Ml Flush Syringe IV Not Given BID GENTRY Sodium Chloride 10 ml 05/01/21 17:16 Sodium Chloride 0.9% 10 Ml Flush Syringe IV PRN PRN LINE FLUSH
--- NOTE | 2021-05-03 18:34 | Event Note ---
Date: 05/02/21 The patient was seen and evaluated on 05/02/2021. However a note was mistakenly not placed.
[2021-05-03] MEDS: metFORMIN 500 MG TAB PO SCH (22:28)
[2021-05-04] MEDS: hydrALAZINE 25 MG TAB PO SCH ×3 (05:39→22:12)
[2021-05-04] MEDS ORDERED: carvediloL 12.5 MG TAB PO SCH (08:29)
[2021-05-04] MEDS: carvediloL 25 MG TAB PO SCH ×2 (10:42→22:15)
[2021-05-04] MEDS: metFORMIN 500 MG TAB PO SCH ×2 (10:43→18:18)
[2021-05-04] MEDS: HEPARIN 5,000 UNIT/1 ML VIAL SUB-Q SCH (10:44)
[2021-05-04] MEDS: ASPIRIN EC 325 MG TAB PO SCH (10:44)
[2021-05-04] MEDS: NIFEdipine XL 30 MG TAB PO SCH (10:44)
[2021-05-04] MEDS: INSULIN LISPRO 100 UNIT/ML SUB-Q SCH ×4 (10:46→23:19)
--- NOTE | 2021-05-04 11:18 | Progress Note ---
Assessment and Plan Assessment and Plan 56-year-old -Malag[place] male comes to the emergency department because of a fall yesterday afternoon. Patient is also complaining of left leg weakness which resolved within couple of hours. Daughter called EMS this morning and patient had a high blood pressure of 240 systolic and 130 diastolic. Patient complains of generalized headache. No vision changes slurred speech or any weakness. Patient does not take any medications. Patient is supposed to be taking lisinopril with which he is noncompliant. No chest pain. -On admission pt. had CT brain and CTAbrain and neck are unremarkable he was admitted for further work up he is not a candidate for TPA nor thrombectomy due to time fram he denied any hx of CVA before he smokes average one back a day rarley alcohol not compling with his BP medications he use Marijuana intermittently - Patient Problems # CVA -pt. presented with intermittent dizziness and left side weakness with increase fall since 05/01 -CT brain and CTA brain and neck are unremarkable -BP elevation initial 240/130 - NIH today is #7 -he is with dense left hemiplegia -MRI brain is remarkable for, Multi-infarct right lateral thalamus,left insular,body of corpus callosum,and right frontal -Start ASA 325 mg daily -Lipitor 40 mg -LDL#118 -PT/ST evaluate -Lipid profil,LDL#7.2 -A1C#7.3 -echo cardiogram showed 50-55% EF, no thrombus is noted -Control Bp<150/80{ symptoms are 2 days old } -pt. is a rehabilitation candidate. 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 cardiac monitering for a month and cardiology evaluation 3- ASA and Lipitor for now 4-ALIRIO r/o thrombus 5- evaluation for rehabilitation 6- start on celexa 20 mg daily 7- stop smoking and recreational drug intake. 8- A1C to <7 9- LDL<70 will follow Subjective Date of service: 05/04/21 Principal diagnosis: left side weakness and fall Interval history: he is some what depressed with left side weakness slightly better today able to move arm and leg some what today echo is noted unremarkable with EF#50-55% -CTA is unremarkable brain and neck MRI is remarkable for multi acute emboli in left.BG, left.Insula and frontal Bilateral EKG is with NSR , he is on moniter LDL#118 A1C#7.2 Objective - Vital Sign Vital Signs - 12hr 05/04/21 05/04/21 05/04/21 01:00 03:20 05:39 Temperature 98.2 F Pulse Rate 84 84 Respiratory 18 Rate Blood Pressure 158/95 158/95 O2 Sat by Pulse 98 95 Oximetry 05/04/21 08:53 Temperature 98.4 F Pulse Rate 84 Respiratory 18 Rate Blood Pressure 140/84 O2 Sat by Pulse 95 Oximetry - General Apperance Constitutional: uncomfortable - EENT EENT: PERRL, mucous membranes moist - Respiratory Respiratory: lungs clear, rhonchi - Cardiovascular Cardiovascular: regular rate, normal S1, normal S2 Extremities: no peripheral edema bilat, no clubbing, cyanosis - Gastrointestinal Gastrointestinal: normoactive bowel sounds - Integumentary Integumentary: normal - Neurologic Cranial nerve examination: PERRL, EOMI, facial droop Speech examination: intact Detailed motor examination: other (left upper and lower are 3-/5 improved from yesterday , right is 4/5, gait not done) - Laboratory Findings CBC and BMP: 05/03/21 05:29 05/03/21 05:29 Abnormal Lab Findings: Abnormal Labs 05/01/21 05/01/21 05/02/21 11:33 11:33 05:34 RBC 6.36 H 6.37 H Hgb 16.9 H 16.7 H Hct 53.1 H 52.5 H MCV 83 L 83 L MCH 27 L 26 L RDW 13.0 L 13.1 L [place] % (Auto) 12.3 H 10.6 H Lymph # (Auto) 1.1 L Sodium Chloride 96.6 L Carbon Dioxide BUN Creatinine Glucose 226 H POC Glucose Hemoglobin A1c Total Protein 8.8 H HDL Cholesterol 05/02/21 05/02/21 05/02/21 05:34 08:07 11:30 RBC Hgb Hct MCV MCH RDW [place] % (Auto) Lymph # (Auto) Sodium 130 L D Chloride 95.2 L Carbon Dioxide 20 L BUN Creatinine 1.6 H Glucose 189 H POC Glucose 158 H 190 H Hemoglobin A1c Total Protein 8.9 H HDL Cholesterol 05/02/21 05/02/21 05/02/21 15:51 16:12 20:57 RBC Hgb Hct MCV MCH RDW [place] % (Auto) Lymph # (Auto) Sodium Chloride Carbon Dioxide BUN Creatinine Glucose POC Glucose 119 H 152 H Hemoglobin A1c 7.3 H Total Protein HDL Cholesterol 05/03/21 05/03/21 05/03/21 05:29 05:29 08:03 RBC 6.31 H Hgb 16.4 H Hct 51.9 H MCV 82 L MCH 26 L RDW 13.1 L [place] % (Auto) Lymph # (Auto) Sodium 134 L Chloride 96.5 L Carbon Dioxide 21 L BUN 30 H Creatinine 1.8 H Glucose 143 H POC Glucose 147 H Hemoglobin A1c Total Protein HDL Cholesterol 05/03/21 05/03/21 05/03/21 11:20 16:17 21:06 RBC Hgb Hct MCV MCH RDW [place] % (Auto) Lymph # (Auto) Sodium Chloride Carbon Dioxide BUN Creatinine Glucose POC Glucose 147 H 155 H 165 H Hemoglobin A1c Total Protein HDL Cholesterol 05/03/21 Unknown RBC Hgb Hct MCV MCH RDW [place] % (Auto) Lymph # (Auto) Sodium Chloride Carbon Dioxide BUN Creatinine Glucose POC Glucose Hemoglobin A1c Total Protein HDL Cholesterol 37 L
[2021-05-04] MEDS: CITALOPRAM 20 MG TAB PO SCH (13:42)
[2021-05-04 14:45] LABS: Calcium 9.7 mg/dL (8.4-10.2)
[2021-05-04 14:48] LABS: Hematocrit 52.9 % (35.5-45.6); Hemoglobin 16.8 gm/dl (11.8-15.2); Mean Corpuscular HGB Conc 32 % (32-34); Mean Corpuscular Volume 82 fl (84-94); Platelet Count 364 K/mm3 (140-440); Red Blood Count 6.46 M/mm3 (3.65-5.03); Red Cell Distribution Width 13.1 % (13.2-15.2)
[2021-05-04 15:00] LABS: INR 0.89 (0.87-1.13)
[2021-05-04 15:01] LABS: Partial Thromboplastin Time 31.6 Sec. (24.2-36.6)
--- NOTE | 2021-05-04 16:08 | Progress Note ---
Assessment and Plan Assessment and plan: #Acute CVA Unremarkable imaging: CT head noncontrast, CTA head, CTA neck MRI brain revealing multiple scattered foci of acute infarction including along the right lateral thalamus and posterior left insula as well as within the body of the corpus callosum and anterior right frontal subcortical region" Continue aspirin 325 mg daily, atorvastatin 40 mg daily Neurology consulted; appreciate recs Physical therapy/Occupational Therapy/speech therapy consulted; recommending subacute rehab TTE remarkable for PFO. Possible etiology of acute CVA. Starting apixaban 5 mg twice daily for lifelong anticoagulation. Continue to monitor #Hypertensive emergencyresolved #Hypertension - home medications: Lisinopril 10 mg daily - current medications: Coreg 12.5 mg twice daily, p.o. hydralazine 50 mg every 8 hours, nifedipine 30 mg daily - SBP goal <160 and DBP goal <90 while inpatient - continue to monitor #Non-insulin dependent type II diabetes mellitus (newly diagnosed) - hemoglobin A1c: 7.3 - home regimen: None - current regimen: Metformin 500 mg twice daily - blood glucose goal 140-180 while inpatient - continue to monitor #Ground-level fall Negative imaging #Morbid obesity #Weight loss counseling #Exercise counseling - BMI 37.5 - Counseled patient on the importance of weight loss, incorporating exercise, and dietary changes (lean meats, fresh fruits and vegetables, and water intake). Patient expresses understanding. - Time: +15 min #Advanced care planning -Disease education conducted, care plan discussed, diagnoses discussed, prognosis discussed, and patient acknowledges understanding with care plan -Time: +30 min #Discharge planning - Patient is pending SNF placement - Case management has been made aware. Disposition Plan: Continue medical management Total Time Spent with Patient (Minutes): 45 minutes History Interval history: No acute events overnight. Hospitalist Physical - Constitutional Vitals: Temp Pulse Resp BP Pulse Ox 98.4 F 84 18 140/84 97 05/04/21 08:53 05/04/21 08:53 05/04/21 08:53 05/04/21 08:53 05/04/21 12:54 General appearance: Present: no acute distress, well-nourished, obese - EENT Eyes: Present: PERRL, EOM intact ENT: hearing intact, clear oral mucosa, dentition normal - Neck Neck: Present: supple, normal ROM - Respiratory Respiratory effort: normal Respiratory: bilateral: CTA - Cardiovascular Rhythm: regular Heart Sounds: Present: S1 & S2 - Extremities Extremities: no ischemia, pulses intact, pulses symmetrical, No edema, normal temperature, normal color Peripheral Pulses: within normal limits - Abdominal General gastrointestinal: soft, non-tender, non-distended, normal bowel sounds - Integumentary Integumentary: Present: clear, warm, dry - Psychiatric Psychiatric: appropriate mood/affect, intact judgment & insight, cooperative - Neurologic Neurologic: focal deficits (Left-sided weakness) - Allied Health Allied health notes reviewed: nursing HEART Score - HEART Score Age: 45-65 Risk factors: 1-2 risk factors Troponin: Troponin T < 0.010 ng/mL (0.00-0.029) 05/01/21 11:33 Troponin: < normal limit - Critical Actions Critical Actions: 0-3 pts:0.9-1.7%risk of adverse cardiac event.Candidate for discharge Results - Labs CBC & Chem 7: 05/04/21 14:13 05/04/21 14:13 Labs: Laboratory Last Values WBC 5.3 K/mm3 (4.5-11.0) 05/04/21 14:13 RBC 6.46 M/mm3 (3.65-5.03) H 05/04/21 14:13 Hgb 16.8 gm/dl (11.8-15.2) H 05/04/21 14:13 Hct 52.9 % (35.5-45.6) H 05/04/21 14:13 MCV 82 fl (84-94) L 05/04/21 14:13 MCH 26 pg (28-32) L 05/04/21 14:13 MCHC 32 % (32-34) 05/04/21 14:13 RDW 13.1 % (13.2-15.2) L 05/04/21 14:13 Plt Count 364 K/mm3 (140-440) 05/04/21 14:13 Lymph % (Auto) 25.5 % (13.4-35.0) 05/02/21 05:34 [place] % (Auto) Environmental Services Specialist 05/03/21 05:29 Eos % (Auto) 0.7 % (0.0-4.3) 05/02/21 05:34 Baso % (Auto) 1.0 % (0.0-1.8) 05/02/21 05:34 Lymph # (Auto) 1.6 K/mm3 (1.2-5.4) 05/02/21 05:34 [place] # (Auto) 0.6 K/mm3 (0.0-0.8) 05/02/21 05:34 Eos # (Auto) 0.0 K/mm3 (0.0-0.4) 05/02/21 05:34 Baso # (Auto) 0.1 K/mm3 (0.0-0.1) 05/02/21 05:34 Add Manual Diff Complete 05/03/21 05:29 Total Counted 100 05/03/21 05:29 Seg Neutrophils % 62.2 % (40.0-70.0) 05/02/21 05:34 Seg Neuts % (Manual) 58.0 % (40.0-70.0) 05/03/21 05:29 Band Neutrophils % 0 % 05/03/21 05:29 Lymphocytes % (Manual) 32.0 % (13.4-35.0) 05/03/21 05:29 Reactive Lymphs % (Man) 0 % 05/03/21 05:29 Monocytes % (Manual) 7.0 % (0.0-7.3) 05/03/21 05:29 Eosinophils % (Manual) 2.0 % (0.0-4.3) 05/03/21 05:29 Basophils % (Manual) 1.0 % (0.0-1.8) 05/03/21 05:29 Metamyelocytes % 0 % 05/03/21 05:29 Myelocytes % 0 % 05/03/21 05:29 Promyelocytes % 0 % 05/03/21 05:29 Blast Cells % 0 % 05/03/21 05:29 Nucleated RBC % Not Reportable 05/03/21 05:29 Seg Neutrophils # 3.8 K/mm3 (1.8-7.7) 05/02/21 05:34 Seg Neutrophils # Man 3.3 K/mm3 (1.8-7.7) 05/03/21 05:29 Band Neutrophils # 0.0 K/mm3 05/03/21 05:29 Lymphocytes # (Manual) 1.8 K/mm3 (1.2-5.4) 05/03/21 05:29 Abs React Lymphs (Man) 0.0 K/mm3 05/03/21 05:29 Monocytes # (Manual) 0.4 K/mm3 (0.0-0.8) 05/03/21 05:29 Eosinophils # (Manual) 0.1 K/mm3 (0.0-0.4) 05/03/21 05:29 Basophils # (Manual) 0.1 K/mm3 (0.0-0.1) 05/03/21 05:29 Metamyelocytes # 0.0 K/mm3 05/03/21 05:29 Myelocytes # 0.0 K/mm3 05/03/21 05:29 Promyelocytes # 0.0 K/mm3 05/03/21 05:29 Blast Cells # 0.0 K/mm3 05/03/21 05:29 WBC Morphology Not Reportable 05/03/21 05:29 Hypersegmented Neuts Not Reportable 05/03/21 05:29 Hyposegmented Neuts Not Reportable 05/03/21 05:29 Hypogranular Neuts Not Reportable 05/03/21 05:29 Smudge Cells Not Reportable 05/03/21 05:29 Toxic Granulation Not Reportable 05/03/21 05:29 Toxic Vacuolation Not Reportable 05/03/21 05:29 Dohle Bodies Not Reportable 05/03/21 05:29 Pelger-Huet Anomaly Not Reportable 05/03/21 05:29 Marleny Rods Not Reportable 05/03/21 05:29 Platelet Estimate Consistent w auto 05/03/21 05:29 Clumped Platelets Not Reportable 05/03/21 05:29 Plt Clumps, EDTA Not Reportable 05/03/21 05:29 Large Platelets Not Reportable 05/03/21 05:29 Giant Platelets Not Reportable 05/03/21 05:29 Platelet Satelliting Not Reportable 05/03/21 05:29 Plt Morphology Comment Not Reportable 05/03/21 05:29 RBC Morphology Not Reportable 05/03/21 05:29 Dimorphic RBCs Not Reportable 05/03/21 05:29 Polychromasia Not Reportable 05/03/21 05:29 Hypochromasia 1+ 05/03/21 05:29 Poikilocytosis Not Reportable 05/03/21 05:29 Anisocytosis Not Reportable 05/03/21 05:29 Microcytosis Not Reportable 05/03/21 05:29 Macrocytosis Not Reportable 05/03/21 05:29 Spherocytes Not Reportable 05/03/21 05:29 Pappenheimer Bodies Not Reportable 05/03/21 05:29 Sickle Cells Not Reportable 05/03/21 05:29 Target Cells Not Reportable 05/03/21 05:29 Tear Drop Cells Not Reportable 05/03/21 05:29 Ovalocytes Not Reportable 05/03/21 05:29 Helmet Cells Not Reportable 05/03/21 05:29 Murphy-[place] Bodies Not Reportable 05/03/21 05:29 [place] Rings Not Reportable 05/03/21 05:29 [place] Cells Not Reportable 05/03/21 05:29 Bite Cells Not Reportable 05/03/21 05:29 Crenated Cell Not Reportable 05/03/21 05:29 Elliptocytes Not Reportable 05/03/21 05:29 Acanthocytes (Spur) Not Reportable 05/03/21 05:29 Rouleaux Not Reportable 05/03/21 05:29 Hemoglobin C Crystals Not Reportable 05/03/21 05:29 Schistocytes Not Reportable 05/03/21 05:29 Malaria parasites Not Reportable 05/03/21 05:29 Jed Bodies Not Reportable 05/03/21 05:29 Hem Pathologist Commnt No 05/03/21 05:29 PT 13.1 Sec. (12.2-14.9) 05/04/21 14:13 INR 0.89 (0.87-1.13) 05/04/21 14:13 APTT 31.6 Sec. (24.2-36.6) 05/04/21 14:13 Sodium 134 mmol/L (137-145) L 05/04/21 14:13 Potassium 5.0 mmol/L (3.6-5.0) 05/04/21 14:13 Chloride 99.7 mmol/L (98-107) 05/04/21 14:13 Carbon Dioxide 20 mmol/L (22-30) L 05/04/21 14:13 Anion Gap 19 mmol/L 05/04/21 14:13 BUN 34 mg/dL (9-20) H 05/04/21 14:13 Creatinine 1.5 mg/dL (0.8-1.3) H 05/04/21 14:13 Estimated GFR 58 ml/min 05/04/21 14:13 BUN/Creatinine Ratio 23 % 05/04/21 14:13 Glucose 207 mg/dL (75-100) H 05/04/21 14:13 POC Glucose 188 mg/dL (70-105) H 05/04/21 15:40 Hemoglobin A1c 7.3 % (4-6) H 05/02/21 15:51 Calcium 9.7 mg/dL (8.4-10.2) 05/04/21 14:13 Total Bilirubin 0.60 mg/dL (0.1-1.2) 05/02/21 05:34 AST 30 units/L (5-40) 05/02/21 05:34 ALT 13 units/L (7-56) 05/02/21 05:34 Alkaline Phosphatase 109 units/L (35-129) 05/02/21 05:34 Troponin T < 0.010 ng/mL (0.00-0.029) 05/01/21 11:33 Total Protein 8.9 g/dL (6.3-8.2) H 05/02/21 05:34 Albumin 4.0 g/dL (3.9-5) 05/02/21 05:34 Albumin/Globulin Ratio 0.8 % 05/02/21 05:34 Triglycerides 98 mg/dL (2-149) 05/03/21 Unknown Cholesterol 176 mg/dL (50-199) 05/03/21 Unknown LDL Cholesterol Direct 118 mg/dL (50-130) 05/03/21 Unknown HDL Cholesterol 37 mg/dL (40-59) L 05/03/21 Unknown Cholesterol/HDL Ratio 4.75 % 05/03/21 Unknown TSH 2.660 mlU/mL (0.270-4.200) 05/01/21 11:33 Avendaño/IV: Voiding Method Urinal Active Medications - Current Medications Current Medications: Generic Name Dose Route Start Last Admin Trade Name Freq PRN Reason Stop Dose Admin Acetaminophen 650 mg 05/01/21 17:16 Acetaminophen 325 Mg Tab PO Q4H PRN Pain MILD(1-3)/Fever >100.5/VARGAS Apixaban 5 mg 05/04/21 22:00 Apixaban 5 Mg Tab PO Q12HR GENTRY Protocol Aspirin 325 mg 05/03/21 14:00 05/04/21 10:44 Aspirin Ec 325 Mg Tab PO 325 mg QDAY GENTRY Administration Atorvastatin Calcium 40 mg 05/03/21 22:00 05/03/21 22:18 Atorvastatin 40 Mg Tab PO 40 mg QHS GENTRY Administration Carvedilol 25 mg 05/04/21 10:00 05/04/21 10:42 Carvedilol 25 Mg Tab PO 25 mg Q12HR GENTRY Administration Citalopram Hydrobromide 20 mg 05/04/21 13:00 05/04/21 13:42 Citalopram 20 Mg Tab PO 20 mg QDAY GENTRY Administration Hydralazine HCl 10 mg 05/01/21 17:28 05/02/21 00:17 Hydralazine 20 Mg/1 Ml Inj IV 10 mg Q2H PRN Administration Blood Pressure Hydralazine HCl 50 mg 05/01/21 18:00 05/04/21 13:42 Hydralazine 25 Mg Tab PO 50 mg Q8HR GENTRY Administration Hydromorphone HCl 0.5 mg 05/01/21 20:53 05/02/21 21:53 Hydromorphone 1 Mg/1 Ml Inj IV 0.5 mg Q3H PRN Administration Pain , Severe (7-10) Insulin Human Lispro 0 unit 05/02/21 07:30 05/04/21 13:41 Insulin Lispro 100 Unit/Ml SUB-Q 2 unit ACHS GENTRY Administration Protocol Metformin HCl 500 mg 05/03/21 20:00 05/04/21 10:43 Metformin 500 Mg Tab PO 500 mg BIDDIAB GENTRY Administration Nifedipine 30 mg 05/03/21 10:00 05/04/21 10:44 Nifedipine Xl 30 Mg Tab PO 30 mg QDAY GENTRY Administration Ondansetron HCl 4 mg 05/01/21 17:16 Ondansetron 4 Mg/2 Ml Inj IV Q8H PRN Nausea And Vomiting Oxycodone/Acetaminophen 1 tab 05/01/21 17:16 05/03/21 22:19 Oxycodone /Acetaminophen 5-325mg Tab PO 1 tab Q6H PRN Administration Pain, Moderate (4-6) Sodium Chloride 10 ml 05/01/21 22:00 05/04/21 10:45 Sodium Chloride 0.9% 10 Ml Flush Syringe IV 10 ml BID GENTRY Administration Sodium Chloride 10 ml 01/25/22 17:16 Sodium Chloride 0.9% 10 Ml Flush Syringe IV PRN PRN LINE FLUSH
[2021-05-04] MEDS: APIXABAN 5 MG TAB PO SCH (22:14)
[2021-05-05] MEDS: hydrALAZINE 25 MG TAB PO SCH ×3 (06:07→21:55)
[2021-05-05] MEDS: INSULIN LISPRO 100 UNIT/ML SUB-Q SCH ×4 (08:05→22:21)
[2021-05-05] MEDS: metFORMIN 500 MG TAB PO SCH ×2 (08:12→17:48)
[2021-05-05 08:14] LABS: Calcium 9.7 mg/dL (8.4-10.2)
[2021-05-05] MEDS: CITALOPRAM 20 MG TAB PO SCH (10:32)
[2021-05-05] MEDS: ASPIRIN EC 325 MG TAB PO SCH (10:32)
[2021-05-05] MEDS: carvediloL 25 MG TAB PO SCH ×2 (10:32→21:55)
[2021-05-05] MEDS: APIXABAN 5 MG TAB PO SCH ×2 (10:32→21:54)
[2021-05-05] MEDS: NIFEdipine XL 30 MG TAB PO SCH (10:33)
--- NOTE | 2021-05-05 14:19 | Progress Note ---
Assessment and Plan Assessment and plan: #Acute CVA Unremarkable imaging: CT head noncontrast, CTA head, CTA neck MRI brain revealing multiple scattered foci of acute infarction including along the right lateral thalamus and posterior left insula as well as within the body of the corpus callosum and anterior right frontal subcortical region" Continue aspirin 325 mg daily, atorvastatin 40 mg daily Neurology consulted; appreciate recs Physical therapy/Occupational Therapy/speech therapy consulted; recommending subacute rehab TTE remarkable for PFO. Possible etiology of acute CVA. Starting apixaban 5 mg twice daily for lifelong anticoagulation. Continue to monitor #Hyponatremia Sodium 130 Continue to monitor. No intervention needed at this time. #ISHMAEL Creatinine 2.0 (previously 1.5) Currently holding any ARB or SOLOMON inhibitors. Continue to monitor with repeat BMP in the morning. #Hypertensive emergencyresolved #Hypertension - home medications: Lisinopril 10 mg daily - current medications: Coreg 12.5 mg twice daily, p.o. hydralazine 50 mg every 8 hours, nifedipine 30 mg daily - SBP goal <160 and DBP goal <90 while inpatient - continue to monitor #Non-insulin dependent type II diabetes mellitus (newly diagnosed) - hemoglobin A1c: 7.3 - home regimen: None - current regimen: Metformin 500 mg twice daily - blood glucose goal 140-180 while inpatient - continue to monitor #Ground-level fall Negative imaging #Morbid obesity #Weight loss counseling #Exercise counseling - BMI 37.5 - Counseled patient on the importance of weight loss, incorporating exercise, and dietary changes (lean meats, fresh fruits and vegetables, and water intake). Patient expresses understanding. - Time: +15 min #Tobacco dependence #Tobacco/Smoking cessation counseling - Counseled patient about the importance of smoking cessation and the possible sequelae as a result of continued tobacco consumption. The patient expresses understanding. -Time: +10 mins #Advanced care planning -Disease education conducted, care plan discussed, diagnoses discussed, prognosis discussed, and patient acknowledges understanding with care plan -Time: +30 min #Discharge planning - Patient is pending SNF placement - Case management has been made aware. Disposition Plan: Continue medical management Total Time Spent with Patient (Minutes): 45 minutes History Interval history: No acute events overnight. Hospitalist Physical - Constitutional Vitals: Temp Pulse Resp BP Pulse Ox 98.0 F 72 18 120/68 96 05/05/21 03:30 05/05/21 10:32 05/05/21 03:30 05/05/21 10:32 05/05/21 03:30 General appearance: Present: no acute distress, well-nourished, obese - EENT Eyes: Present: PERRL, EOM intact ENT: hearing intact, clear oral mucosa, dentition normal - Neck Neck: Present: supple, normal ROM - Respiratory Respiratory effort: normal Respiratory: bilateral: CTA - Cardiovascular Rhythm: regular Heart Sounds: Present: S1 & S2 - Extremities Extremities: no ischemia, pulses intact, pulses symmetrical, No edema, normal temperature, normal color Peripheral Pulses: within normal limits - Abdominal General gastrointestinal: soft, non-tender, non-distended, normal bowel sounds - Integumentary Integumentary: Present: clear, warm, dry - Psychiatric Psychiatric: appropriate mood/affect, intact judgment & insight, memory intact, cooperative - Neurologic Neurologic: CNII-XII intact, focal deficits (Left-sided weakness) - Allied Health Allied health notes reviewed: nursing HEART Score - HEART Score Age: 45-65 Risk factors: 1-2 risk factors Troponin: Troponin T < 0.010 ng/mL (0.00-0.029) 05/01/21 11:33 Troponin: < normal limit - Critical Actions Critical Actions: 0-3 pts:0.9-1.7%risk of adverse cardiac event.Candidate for discharge Results - Labs CBC & Chem 7: 05/04/21 14:13 05/05/21 07:24 Labs: Laboratory Last Values WBC 5.3 K/mm3 (4.5-11.0) 05/04/21 14:13 RBC 6.46 M/mm3 (3.65-5.03) H 05/04/21 14:13 Hgb 16.8 gm/dl (11.8-15.2) H 05/04/21 14:13 Hct 52.9 % (35.5-45.6) H 05/04/21 14:13 MCV 82 fl (84-94) L 05/04/21 14:13 MCH 26 pg (28-32) L 05/04/21 14:13 MCHC 32 % (32-34) 05/04/21 14:13 RDW 13.1 % (13.2-15.2) L 05/04/21 14:13 Plt Count 364 K/mm3 (140-440) 05/04/21 14:13 Lymph % (Auto) 25.5 % (13.4-35.0) 05/02/21 05:34 [place] % (Auto) Lens Grinding Machine Operator 05/03/21 05:29 Eos % (Auto) 0.7 % (0.0-4.3) 05/02/21 05:34 Baso % (Auto) 1.0 % (0.0-1.8) 05/02/21 05:34 Lymph # (Auto) 1.6 K/mm3 (1.2-5.4) 05/02/21 05:34 [place] # (Auto) 0.6 K/mm3 (0.0-0.8) 05/02/21 05:34 Eos # (Auto) 0.0 K/mm3 (0.0-0.4) 05/02/21 05:34 Baso # (Auto) 0.1 K/mm3 (0.0-0.1) 05/02/21 05:34 Add Manual Diff Complete 05/03/21 05:29 Total Counted 100 05/03/21 05:29 Seg Neutrophils % 62.2 % (40.0-70.0) 05/02/21 05:34 Seg Neuts % (Manual) 58.0 % (40.0-70.0) 05/03/21 05:29 Band Neutrophils % 0 % 05/03/21 05:29 Lymphocytes % (Manual) 32.0 % (13.4-35.0) 05/03/21 05:29 Reactive Lymphs % (Man) 0 % 05/03/21 05:29 Monocytes % (Manual) 7.0 % (0.0-7.3) 05/03/21 05:29 Eosinophils % (Manual) 2.0 % (0.0-4.3) 05/03/21 05:29 Basophils % (Manual) 1.0 % (0.0-1.8) 05/03/21 05:29 Metamyelocytes % 0 % 05/03/21 05:29 Myelocytes % 0 % 05/03/21 05:29 Promyelocytes % 0 % 05/03/21 05:29 Blast Cells % 0 % 05/03/21 05:29 Nucleated RBC % Not Reportable 05/03/21 05:29 Seg Neutrophils # 3.8 K/mm3 (1.8-7.7) 05/02/21 05:34 Seg Neutrophils # Man 3.3 K/mm3 (1.8-7.7) 05/03/21 05:29 Band Neutrophils # 0.0 K/mm3 05/03/21 05:29 Lymphocytes # (Manual) 1.8 K/mm3 (1.2-5.4) 05/03/21 05:29 Abs React Lymphs (Man) 0.0 K/mm3 05/03/21 05:29 Monocytes # (Manual) 0.4 K/mm3 (0.0-0.8) 05/03/21 05:29 Eosinophils # (Manual) 0.1 K/mm3 (0.0-0.4) 05/03/21 05:29 Basophils # (Manual) 0.1 K/mm3 (0.0-0.1) 05/03/21 05:29 Metamyelocytes # 0.0 K/mm3 05/03/21 05:29 Myelocytes # 0.0 K/mm3 05/03/21 05:29 Promyelocytes # 0.0 K/mm3 05/03/21 05:29 Blast Cells # 0.0 K/mm3 05/03/21 05:29 WBC Morphology Not Reportable 05/03/21 05:29 Hypersegmented Neuts Not Reportable 05/03/21 05:29 Hyposegmented Neuts Not Reportable 05/03/21 05:29 Hypogranular Neuts Not Reportable 05/03/21 05:29 Smudge Cells Not Reportable 05/03/21 05:29 Toxic Granulation Not Reportable 05/03/21 05:29 Toxic Vacuolation Not Reportable 05/03/21 05:29 Dohle Bodies Not Reportable 05/03/21 05:29 Pelger-Huet Anomaly Not Reportable 05/03/21 05:29 Marleny Rods Not Reportable 05/03/21 05:29 Platelet Estimate Consistent w auto 05/03/21 05:29 Clumped Platelets Not Reportable 05/03/21 05:29 Plt Clumps, EDTA Not Reportable 05/03/21 05:29 Large Platelets Not Reportable 05/03/21 05:29 Giant Platelets Not Reportable 05/03/21 05:29 Platelet Satelliting Not Reportable 05/03/21 05:29 Plt Morphology Comment Not Reportable 05/03/21 05:29 RBC Morphology Not Reportable 05/03/21 05:29 Dimorphic RBCs Not Reportable 05/03/21 05:29 Polychromasia Not Reportable 05/03/21 05:29 Hypochromasia 1+ 05/03/21 05:29 Poikilocytosis Not Reportable 05/03/21 05:29 Anisocytosis Not Reportable 05/03/21 05:29 Microcytosis Not Reportable 05/03/21 05:29 Macrocytosis Not Reportable 05/03/21 05:29 Spherocytes Not Reportable 05/03/21 05:29 Pappenheimer Bodies Not Reportable 05/03/21 05:29 Sickle Cells Not Reportable 05/03/21 05:29 Target Cells Not Reportable 05/03/21 05:29 Tear Drop Cells Not Reportable 05/03/21 05:29 Ovalocytes Not Reportable 05/03/21 05:29 Helmet Cells Not Reportable 05/03/21 05:29 Murphy-[place] Bodies Not Reportable 05/03/21 05:29 [place] Rings Not Reportable 05/03/21 05:29 [place] Cells Not Reportable 05/03/21 05:29 Bite Cells Not Reportable 05/03/21 05:29 Crenated Cell Not Reportable 05/03/21 05:29 Elliptocytes Not Reportable 05/03/21 05:29 Acanthocytes (Spur) Not Reportable 05/03/21 05:29 Rouleaux Not Reportable 05/03/21 05:29 Hemoglobin C Crystals Not Reportable 05/03/21 05:29 Schistocytes Not Reportable 05/03/21 05:29 Malaria parasites Not Reportable 05/03/21 05:29 Jed Bodies Not Reportable 05/03/21 05:29 Hem Pathologist Commnt No 05/03/21 05:29 PT 13.1 Sec. (12.2-14.9) 05/04/21 14:13 INR 0.89 (0.87-1.13) 05/04/21 14:13 APTT 31.6 Sec. (24.2-36.6) 05/04/21 14:13 Sodium 130 mmol/L (137-145) L 05/05/21 07:24 Potassium 4.6 mmol/L (3.6-5.0) 05/05/21 07:24 Chloride 97.3 mmol/L (98-107) L 05/05/21 07:24 Carbon Dioxide 18 mmol/L (22-30) L 05/05/21 07:24 Anion Gap 19 mmol/L 05/05/21 07:24 BUN 44 mg/dL (9-20) H 05/05/21 07:24 Creatinine 2.0 mg/dL (0.8-1.3) H 05/05/21 07:24 Estimated GFR 42 ml/min 05/05/21 07:24 BUN/Creatinine Ratio 22 % 05/05/21 07:24 Glucose 144 mg/dL (75-100) H 05/05/21 07:24 POC Glucose 184 mg/dL (70-105) H 05/05/21 11:54 Hemoglobin A1c 7.3 % (4-6) H 05/02/21 15:51 Calcium 9.7 mg/dL (8.4-10.2) 05/05/21 07:24 Total Bilirubin 0.60 mg/dL (0.1-1.2) 05/02/21 05:34 AST 30 units/L (5-40) 05/02/21 05:34 ALT 13 units/L (7-56) 05/02/21 05:34 Alkaline Phosphatase 109 units/L (35-129) 05/02/21 05:34 Troponin T < 0.010 ng/mL (0.00-0.029) 05/01/21 11:33 Total Protein 8.9 g/dL (6.3-8.2) H 05/02/21 05:34 Albumin 4.0 g/dL (3.9-5) 05/02/21 05:34 Albumin/Globulin Ratio 0.8 % 05/02/21 05:34 Triglycerides 98 mg/dL (2-149) 05/03/21 Unknown Cholesterol 176 mg/dL (50-199) 05/03/21 Unknown LDL Cholesterol Direct 118 mg/dL (50-130) 05/03/21 Unknown HDL Cholesterol 37 mg/dL (40-59) L 05/03/21 Unknown Cholesterol/HDL Ratio 4.75 % 05/03/21 Unknown TSH 2.660 mlU/mL (0.270-4.200) 05/01/21 11:33 Avendaño/IV: Voiding Method Urinal Active Medications - Current Medications Current Medications: Generic Name Dose Route Start Last Admin Trade Name Freq PRN Reason Stop Dose Admin Acetaminophen 650 mg 05/01/21 17:16 Acetaminophen 325 Mg Tab PO Q4H PRN Pain MILD(1-3)/Fever >100.5/VARGAS Apixaban 5 mg 05/04/21 22:00 05/05/21 10:32 Apixaban 5 Mg Tab PO 5 mg Q12HR GENTRY Administration Protocol Aspirin 325 mg 05/03/21 14:00 05/05/21 10:32 Aspirin Ec 325 Mg Tab PO 325 mg QDAY GENTRY Administration Atorvastatin Calcium 40 mg 05/03/21 22:00 05/04/21 22:09 Atorvastatin 40 Mg Tab PO 40 mg QHS GENTRY Administration Carvedilol 25 mg 05/04/21 10:00 05/05/21 10:32 Carvedilol 25 Mg Tab PO 25 mg Q12HR GENTRY Administration Citalopram Hydrobromide 20 mg 05/04/21 13:00 05/05/21 10:32 Citalopram 20 Mg Tab PO 20 mg QDAY GENTRY Administration Hydralazine HCl 10 mg 05/01/21 17:28 05/02/21 00:17 Hydralazine 20 Mg/1 Ml Inj IV 10 mg Q2H PRN Administration Blood Pressure Hydralazine HCl 50 mg 05/01/21 18:00 05/05/21 06:07 Hydralazine 25 Mg Tab PO Not Given Q8HR GENTRY Hydromorphone HCl 0.5 mg 05/01/21 20:53 05/02/21 21:53 Hydromorphone 1 Mg/1 Ml Inj IV 0.5 mg Q3H PRN Administration Pain , Severe (7-10) Insulin Human Lispro 0 unit 05/02/21 07:30 05/05/21 12:23 Insulin Lispro 100 Unit/Ml SUB-Q 2 unit ACHS GENTRY Administration Protocol Metformin HCl 500 mg 05/03/21 20:00 05/05/21 08:12 Metformin 500 Mg Tab PO 500 mg BIDDIAB GENTRY Administration Nifedipine 30 mg 05/03/21 10:00 05/05/21 10:33 Nifedipine Xl 30 Mg Tab PO 30 mg QDAY GENTRY Administration Ondansetron HCl 4 mg 05/01/21 17:16 Ondansetron 4 Mg/2 Ml Inj IV Q8H PRN Nausea And Vomiting Oxycodone/Acetaminophen 1 tab 05/01/21 17:16 05/03/21 22:19 Oxycodone /Acetaminophen 5-325mg Tab PO 1 tab Q6H PRN Administration Pain, Moderate (4-6) Sodium Chloride 10 ml 05/01/21 22:00 05/05/21 10:34 Sodium Chloride 0.9% 10 Ml Flush Syringe IV 10 ml BID GENTRY Administration Sodium Chloride 10 ml 05/01/21 17:16 Sodium Chloride 0.9% 10 Ml Flush Syringe IV PRN PRN LINE FLUSH
[2021-05-05] MEDS: oxyCODONE /ACETAMINOPHEN 5-325MG TAB PO PRN (17:52)
[2021-05-06] MEDS: hydrALAZINE 25 MG TAB PO SCH ×3 (05:09→21:10)
[2021-05-06 06:21] LABS: Hematocrit 48.8 % (35.5-45.6); Hemoglobin 15.8 gm/dl (11.8-15.2); Mean Corpuscular HGB Conc 32 % (32-34); Mean Corpuscular Volume 83 fl (84-94); Platelet Count 344 K/mm3 (140-440); Red Blood Count 5.88 M/mm3 (3.65-5.03); Red Cell Distribution Width 12.9 % (13.2-15.2)
[2021-05-06] MEDS: metFORMIN 500 MG TAB PO SCH ×2 (08:15→16:56)
[2021-05-06] MEDS: carvediloL 25 MG TAB PO SCH ×2 (10:07→21:12)
[2021-05-06] MEDS: NIFEdipine XL 30 MG TAB PO SCH (10:07)
[2021-05-06] MEDS: CITALOPRAM 20 MG TAB PO SCH (10:07)
[2021-05-06] MEDS: ASPIRIN EC 325 MG TAB PO SCH (10:08)
[2021-05-06] MEDS: APIXABAN 5 MG TAB PO SCH ×2 (10:08→21:20)
[2021-05-06] MEDS: INSULIN LISPRO 100 UNIT/ML SUB-Q SCH ×4 (10:09→21:14)
[2021-05-06 10:34] LABS: Calcium 9.5 mg/dL (8.4-10.2)
--- NOTE | 2021-05-06 14:17 | Progress Note ---
Assessment and Plan Assessment and plan: #Acute CVA Unremarkable imaging: CT head noncontrast, CTA head, CTA neck MRI brain revealing multiple scattered foci of acute infarction including along the right lateral thalamus and posterior left insula as well as within the body of the corpus callosum and anterior right frontal subcortical region" Continue aspirin 325 mg daily, atorvastatin 40 mg daily Neurology consulted; appreciate recs Physical therapy/Occupational Therapy/speech therapy consulted; recommending subacute rehab TTE remarkable for PFO. Possible etiology of acute CVA. Starting apixaban 5 mg twice daily for lifelong anticoagulation. Continue to monitor #Hyponatremia- resolved Sodium 130 Continue to monitor. No intervention needed at this time. #ISHMAEL- improving Creatinine 1.8 (previously 2.0) Currently holding any ARB or SOLOMON inhibitors. Continue to monitor with repeat BMP in the morning. #Hypertensive emergencyresolved #Hypertension - home medications: Lisinopril 10 mg daily - current medications: Coreg 12.5 mg twice daily, p.o. hydralazine 50 mg every 8 hours, nifedipine 30 mg daily - SBP goal <160 and DBP goal <90 while inpatient - continue to monitor #Non-insulin dependent type II diabetes mellitus (newly diagnosed) - hemoglobin A1c: 7.3 - home regimen: None - current regimen: Metformin 500 mg twice daily - blood glucose goal 140-180 while inpatient - continue to monitor #Ground-level fall Negative imaging #Morbid obesity #Weight loss counseling #Exercise counseling - BMI 37.5 - Counseled patient on the importance of weight loss, incorporating exercise, and dietary changes (lean meats, fresh fruits and vegetables, and water intake). Patient expresses understanding. - Time: +15 min #Tobacco dependence #Tobacco/Smoking cessation counseling - Counseled patient about the importance of smoking cessation and the possible sequelae as a result of continued tobacco consumption. The patient expresses understanding. -Time: +10 mins #Advanced care planning -Disease education conducted, care plan discussed, diagnoses discussed, prognosis discussed, and patient acknowledges understanding with care plan -Time: +30 min #Discharge planning - Patient is pending SNF placement - Case management has been made aware. Disposition Plan: Pending SNF placement Total Time Spent with Patient (Minutes): 30 min History Interval history: No acute events overnight. Hospitalist Physical - Constitutional Vitals: Temp Pulse Resp BP Pulse Ox 97.7 F 71 18 143/85 92 05/06/21 11:09 05/06/21 13:52 05/06/21 11:09 05/06/21 13:52 05/06/21 11:09 General appearance: Present: no acute distress, well-nourished, obese - EENT Eyes: Present: PERRL, EOM intact ENT: hearing intact, clear oral mucosa, dentition normal - Neck Neck: Present: supple, normal ROM - Respiratory Respiratory effort: normal Respiratory: bilateral: CTA - Cardiovascular Rhythm: regular Heart Sounds: Present: S1 & S2 - Extremities Extremities: no ischemia, pulses intact, pulses symmetrical, No edema, normal temperature, normal color, Full ROM Peripheral Pulses: within normal limits - Abdominal General gastrointestinal: soft, non-tender, non-distended, normal bowel sounds - Integumentary Integumentary: Present: clear, warm, dry - Psychiatric Psychiatric: appropriate mood/affect, intact judgment & insight, memory intact, cooperative - Neurologic Neurologic: CNII-XII intact, focal deficits (left sided weakness) - Allied Health Allied health notes reviewed: nursing HEART Score - HEART Score Age: 45-65 Risk factors: 1-2 risk factors Troponin: Troponin T < 0.010 ng/mL (0.00-0.029) 05/01/21 11:33 Troponin: < normal limit - Critical Actions Critical Actions: 0-3 pts:0.9-1.7%risk of adverse cardiac event.Candidate for d ischarge Results - Labs CBC & Chem 7: 05/06/21 05:24 05/06/21 10:02 Labs: Laboratory Last Values WBC 5.6 K/mm3 (4.5-11.0) 05/06/21 05:24 RBC 5.88 M/mm3 (3.65-5.03) H 05/06/21 05:24 Hgb 15.8 gm/dl (11.8-15.2) H 05/06/21 05:24 Hct 48.8 % (35.5-45.6) H 05/06/21 05:24 MCV 83 fl (84-94) L 05/06/21 05:24 MCH 27 pg (28-32) L 05/06/21 05:24 MCHC 32 % (32-34) 05/06/21 05:24 RDW 12.9 % (13.2-15.2) L 05/06/21 05:24 Plt Count 344 K/mm3 (140-440) 05/06/21 05:24 Lymph % (Auto) 25.5 % (13.4-35.0) 05/02/21 05:34 [place] % (Auto) Overnight Babysitter 05/03/21 05:29 Eos % (Auto) 0.7 % (0.0-4.3) 05/02/21 05:34 Baso % (Auto) 1.0 % (0.0-1.8) 05/02/21 05:34 Lymph # (Auto) 1.6 K/mm3 (1.2-5.4) 05/02/21 05:34 [place] # (Auto) 0.6 K/mm3 (0.0-0.8) 05/02/21 05:34 Eos # (Auto) 0.0 K/mm3 (0.0-0.4) 05/02/21 05:34 Baso # (Auto) 0.1 K/mm3 (0.0-0.1) 05/02/21 05:34 Add Manual Diff Complete 05/03/21 05:29 Total Counted 100 05/03/21 05:29 Seg Neutrophils % 62.2 % (40.0-70.0) 05/02/21 05:34 Seg Neuts % (Manual) 58.0 % (40.0-70.0) 05/03/21 05:29 Band Neutrophils % 0 % 05/03/21 05:29 Lymphocytes % (Manual) 32.0 % (13.4-35.0) 05/03/21 05:29 Reactive Lymphs % (Man) 0 % 05/03/21 05:29 Monocytes % (Manual) 7.0 % (0.0-7.3) 05/03/21 05:29 Eosinophils % (Manual) 2.0 % (0.0-4.3) 05/03/21 05:29 Basophils % (Manual) 1.0 % (0.0-1.8) 05/03/21 05:29 Metamyelocytes % 0 % 05/03/21 05:29 Myelocytes % 0 % 05/03/21 05:29 Promyelocytes % 0 % 05/03/21 05:29 Blast Cells % 0 % 05/03/21 05:29 Nucleated RBC % Not Reportable 05/03/21 05:29 Seg Neutrophils # 3.8 K/mm3 (1.8-7.7) 05/02/21 05:34 Seg Neutrophils # Man 3.3 K/mm3 (1.8-7.7) 05/03/21 05:29 Band Neutrophils # 0.0 K/mm3 05/03/21 05:29 Lymphocytes # (Manual) 1.8 K/mm3 (1.2-5.4) 05/03/21 05:29 Abs React Lymphs (Man) 0.0 K/mm3 05/03/21 05:29 Monocytes # (Manual) 0.4 K/mm3 (0.0-0.8) 05/03/21 05:29 Eosinophils # (Manual) 0.1 K/mm3 (0.0-0.4) 05/03/21 05:29 Basophils # (Manual) 0.1 K/mm3 (0.0-0.1) 05/03/21 05:29 Metamyelocytes # 0.0 K/mm3 05/03/21 05:29 Myelocytes # 0.0 K/mm3 05/03/21 05:29 Promyelocytes # 0.0 K/mm3 05/03/21 05:29 Blast Cells # 0.0 K/mm3 05/03/21 05:29 WBC Morphology Not Reportable 05/03/21 05:29 Hypersegmented Neuts Not Reportable 05/03/21 05:29 Hyposegmented Neuts Not Reportable 05/03/21 05:29 Hypogranular Neuts Not Reportable 05/03/21 05:29 Smudge Cells Not Reportable 05/03/21 05:29 Toxic Granulation Not Reportable 05/03/21 05:29 Toxic Vacuolation Not Reportable 05/03/21 05:29 Dohle Bodies Not Reportable 05/03/21 05:29 Pelger-Huet Anomaly Not Reportable 05/03/21 05:29 Marleny Rods Not Reportable 05/03/21 05:29 Platelet Estimate Consistent w auto 05/03/21 05:29 Clumped Platelets Not Reportable 05/03/21 05:29 Plt Clumps, EDTA Not Reportable 05/03/21 05:29 Large Platelets Not Reportable 05/03/21 05:29 Giant Platelets Not Reportable 05/03/21 05:29 Platelet Satelliting Not Reportable 05/03/21 05:29 Plt Morphology Comment Not Reportable 05/03/21 05:29 RBC Morphology Not Reportable 05/03/21 05:29 Dimorphic RBCs Not Reportable 05/03/21 05:29 Polychromasia Not Reportable 05/03/21 05:29 Hypochromasia 1+ 05/03/21 05:29 Poikilocytosis Not Reportable 05/03/21 05:29 Anisocytosis Not Reportable 05/03/21 05:29 Microcytosis Not Reportable 05/03/21 05:29 Macrocytosis Not Reportable 05/03/21 05:29 Spherocytes Not Reportable 05/03/21 05:29 Pappenheimer Bodies Not Reportable 05/03/21 05:29 Sickle Cells Not Reportable 05/03/21 05:29 Target Cells Not Reportable 05/03/21 05:29 Tear Drop Cells Not Reportable 05/03/21 05:29 Ovalocytes Not Reportable 05/03/21 05:29 Helmet Cells Not Reportable 05/03/21 05:29 [place] Bodies Not Reportable 05/03/21 05:29 Mobile Rings Not Reportable 05/03/21 05:29 Edd Cells Not Reportable 05/03/21 05:29 Bite Cells Not Reportable 05/03/21 05:29 Crenated Cell Not Reportable 05/03/21 05:29 Elliptocytes Not Reportable 05/03/21 05:29 Acanthocytes (Spur) Not Reportable 05/03/21 05:29 Rouleaux Not Reportable 05/03/21 05:29 Hemoglobin C Crystals Not Reportable 05/03/21 05:29 Schistocytes Not Reportable 05/03/21 05:29 Malaria parasites Not Reportable 05/03/21 05:29 Jed Bodies Not Reportable 05/03/21 05:29 Hem Pathologist Commnt No 05/03/21 05:29 PT 13.1 Sec. (12.2-14.9) 05/04/21 14:13 INR 0.89 (0.87-1.13) 05/04/21 14:13 APTT 31.6 Sec. (24.2-36.6) 05/04/21 14:13 Sodium 135 mmol/L (137-145) L 05/06/21 10:02 Potassium 4.3 mmol/L (3.6-5.0) 05/06/21 10:02 Chloride 100.5 mmol/L (98-107) 05/06/21 10:02 Carbon Dioxide 19 mmol/L (22-30) L 05/06/21 10:02 Anion Gap 20 mmol/L 05/06/21 10:02 BUN 47 mg/dL (9-20) H 05/06/21 10:02 Creatinine 1.8 mg/dL (0.8-1.3) H 05/06/21 10:02 Estimated GFR 47 ml/min 05/06/21 10:02 BUN/Creatinine Ratio 26 % 05/06/21 10:02 Glucose 168 mg/dL (75-100) H 05/06/21 10:02 POC Glucose 144 mg/dL (70-105) H 05/06/21 11:08 Hemoglobin A1c 7.3 % (4-6) H 05/02/21 15:51 Calcium 9.5 mg/dL (8.4-10.2) 05/06/21 10:02 Total Bilirubin 0.60 mg/dL (0.1-1.2) 05/02/21 05:34 AST 30 units/L (5-40) 05/02/21 05:34 ALT 13 units/L (7-56) 05/02/21 05:34 Alkaline Phosphatase 109 units/L (35-129) 05/02/21 05:34 Troponin T < 0.010 ng/mL (0.00-0.029) 05/01/21 11:33 Total Protein 8.9 g/dL (6.3-8.2) H 05/02/21 05:34 Albumin 4.0 g/dL (3.9-5) 05/02/21 05:34 Albumin/Globulin Ratio 0.8 % 05/02/21 05:34 Triglycerides 98 mg/dL (2-149) 05/03/21 Unknown Cholesterol 176 mg/dL (50-199) 05/03/21 Unknown LDL Cholesterol Direct 118 mg/dL (50-130) 05/03/21 Unknown HDL Cholesterol 37 mg/dL (40-59) L 05/03/21 Unknown Cholesterol/HDL Ratio 4.75 % 05/03/21 Unknown TSH 2.660 mlU/mL (0.270-4.200) 05/01/21 11:33 Avendaño/IV: Voiding Method Urinal Active Medications - Current Medications Current Medications: Generic Name Dose Route Start Last Admin Trade Name Freq PRN Reason Stop Dose Admin Acetaminophen 650 mg 05/01/21 17:16 Acetaminophen 325 Mg Tab PO Q4H PRN Pain MILD(1-3)/Fever >100.5/VARGAS Apixaban 5 mg 05/04/21 22:00 05/06/21 10:08 Apixaban 5 Mg Tab PO 5 mg Q12HR GENTRY Administration Protocol Aspirin 325 mg 05/03/21 14:00 05/06/21 10:08 Aspirin Ec 325 Mg Tab PO 325 mg QDAY GENTRY Administration Atorvastatin Calcium 40 mg 05/03/21 22:00 05/05/21 21:54 Atorvastatin 40 Mg Tab PO 40 mg QHS GENTRY Administration Carvedilol 25 mg 05/04/21 10:00 05/06/21 10:07 Carvedilol 25 Mg Tab PO 25 mg Q12HR GENTRY Administration Citalopram Hydrobromide 20 mg 05/04/21 13:00 05/06/21 10:07 Citalopram 20 Mg Tab PO 20 mg QDAY GENTRY Administration Hydralazine HCl 10 mg 05/01/21 17:28 05/02/21 00:17 Hydralazine 20 Mg/1 Ml Inj IV 10 mg Q2H PRN Administration Blood Pressure Hydralazine HCl 50 mg 05/01/21 18:00 05/06/21 13:52 Hydralazine 25 Mg Tab PO 50 mg Q8HR GENTRY Administration Hydromorphone HCl 0.5 mg 05/01/21 20:53 05/02/21 21:53 Hydromorphone 1 Mg/1 Ml Inj IV 0.5 mg Q3H PRN Administration Pain , Severe (7-10) Insulin Human Lispro 0 unit 05/02/21 07:30 05/06/21 11:37 Insulin Lispro 100 Unit/Ml SUB-Q Not Given ACHS [facility] Protocol Metformin HCl 500 mg 05/03/21 20:00 05/06/21 08:15 Metformin 500 Mg Tab PO 500 mg BIDDIAB GENTRY Administration Nifedipine 30 mg 05/03/21 10:00 05/06/21 10:07 Nifedipine Xl 30 Mg Tab PO 30 mg QDAY GENTRY Administration Ondansetron HCl 4 mg 05/01/21 17:16 Ondansetron 4 Mg/2 Ml Inj IV Q8H PRN Nausea And Vomiting Oxycodone/Acetaminophen 1 tab 05/01/21 17:16 05/05/21 17:52 Oxycodone /Acetaminophen 5-325mg Tab PO 1 tab Q6H PRN Administration Pain, Moderate (4-6) Sodium Chloride 10 ml 05/01/21 22:00 05/06/21 13:52 Sodium Chloride 0.9% 10 Ml Flush Syringe IV 10 ml BID GENRTY Administration Sodium Chloride 10 ml 05/01/21 17:16 Sodium Chloride 0.9% 10 Ml Flush Syringe IV PRN PRN LINE FLUSH
[2021-05-06] MEDS: oxyCODONE /ACETAMINOPHEN 5-325MG TAB PO PRN (16:56)
[2021-05-07 06:19] LABS: BUN/Creatinine Ratio 32; Blood Urea Nitrogen 42 mg/dL (9-20); Calcium 9.6 mg/dL (8.4-10.2); Hemolysis Index 4
[2021-05-07] MEDS: hydrALAZINE 25 MG TAB PO SCH ×3 (06:19→21:56)
[2021-05-07] MEDS: INSULIN LISPRO 100 UNIT/ML SUB-Q SCH ×4 (08:00→21:27)
--- NOTE | 2021-05-07 11:14 | Discharge Summary ---
Providers - Providers Date of Admission: 05/03/21 12:31 Date of discharge: 05/07/21 Attending physician: BERTA GAFFNEY MD 05/03/21 13:06 Consult to Physician [CONS] Routine Comment: Consulting Provider: ADORE CHAVEZ Physician Instructions: Reason For Exam: Concern for stroke Physical Therapy Evaluation and Treat [CONS] Routine Comment: Reason For Exam: L-sided weakness; concern for stroke 05/03/21 18:34 Occupational Therapy Evaluate and Treat [CONS] Routine Comment: Reason For Exam: left sided weakness 2/2 acute stroke Speech Therapy Evaluation and Treat [CONS] Routine Reason For Exam: Speech eval in the setting of an acute stroke Primary care physician: BULB FARMWORKER Hospitalization Reason for admission: Hypertensive emergency Condition: Serious Pertinent studies: Reviewed. Procedures: None. Hospital course: Patient is a 56-year-old male with past medical history of uncontrolled hypertension, obesity, and tobacco dependence who presented after a fall at home and complains of left leg weakness that mildly improved; however, he did not return back to his baseline. EMS was called and the patient was found to have a systolic blood pressure of 240 and diastolic 130 in addition to complaints of generalized headaches. In the ED the patient was initiated antihypertensives to medically manage his hypertensive emergency. The patient was diagnosed with noninsulin-dependent type 2 diabetes mellitus with a hemoglobin A1c of 7.3. He was started on Metformin 500 mg twice daily. Due to continued left-sided weakness, the patient was evaluated for stroke. The patient was found to have an unremarkable CT head noncontrast, CTA head, and CTA neck. MRI brain revealed "multiple scattered foci of acute infarction including along the right lateral thalamus and posterior left insula as well as within the body of the corpus callosum and anterior right frontal subcortical region". Patient was then evaluated by neurology for further management. He will continue aspirin 325 mg daily and atorvastatin 40 mg daily per stroke protocol. Physical therapy, Occupational Therapy, and speech therapy evaluated the patient; they recommended subacute rehab. The patient had a TTE that revealed PFO. The patient was then started on anticoagulation of apixaban 5 mg every 12 hours. Due to the patient not having the financial resources or insurance needed for subacute rehab, the patient will be discharged home with resources (home health PT, etc.). The patient is medically cleared for discharge. Disposition: HOME / SELF CARE / HOMELESS Final Discharge Diagnosis (Prints w/discharge instructions): Acute CVA, hypertensive emergency, hypertension, [id number] type 2 diabetes mellitus (newly diagnosed), ground-level fall, morbid obesity, ISHMAEL, hyponat remia, tobacco dependence Time spent for discharge: 45 min Core Measure Documentation - Palliative Care Palliative Care/ Comfort Measures: Not Applicable - Core Measures Any of the following diagnoses?: none - Stroke Discharge Requirements Statin for LDL = or >70 mg/dl on DC: Yes Anticoag for atrial fib/atrial flutter: Not Applicable Antithrombotic for ischemic stroke: Yes Exam - Constitutional Vitals: Temp Pulse Resp BP Pulse Ox 98.3 F 88 18 143/77 95 05/07/21 08:01 05/07/21 08:01 05/07/21 08:01 05/07/21 08:01 05/07/21 08:01 General appearance: Present: no acute distress, well-nourished, obese - EENT Eyes: Present: PERRL ENT: hearing intact, clear oral mucosa - Neck Neck: Present: supple, normal ROM - Respiratory Respiratory effort: normal Respiratory: bilateral: CTA - Cardiovascular Rhythm: regular Heart Sounds: Present: S1 & S2 - Extremities Extremities: no ischemia, pulses intact, pulses symmetrical, No edema, normal temperature, normal color Peripheral Pulses: within normal limits - Abdominal General gastrointestinal: Present: soft, non-tender, non-distended, normal bowel sounds Male genitourinary: Present: deferred - Rectal Rectal Exam: deferred - Integumentary Integumentary: Present: clear, warm, dry - Musculoskeletal Musculoskeletal: left sided weakness - Psychiatric Psychiatric: appropriate mood/affect, intact judgment & insight, memory intact, cooperative - Neurologic Neurologic: CNII-XII intact, moves all extremities - Allied Health Allied health notes reviewed: nursing Plan Activity: advance as tolerated Diet: low salt, diabetic Additional Instructions: Patient is a 56-year-old male with past medical history of uncontrolled hypertension, obesity, and tobacco dependence who presented after a fall at home and complains of left leg weakness that mildly improved; however, he did not return back to his baseline. EMS was called and the patient was found to have a systolic blood pressure of 240 and diastolic 130 in addition to complaints of generalized headaches. In the ED the patient was initiated antihypertensives to medically manage his hypertensive emergency. The patient was diagnosed with noninsulin-dependent type 2 diabetes mellitus with a hemoglobin A1c of 7.3. He was started on Metformin 500 mg twice daily. Due to continued left-sided weakness, the patient was evaluated for stroke. The patient was found to have an unremarkable CT head noncontrast, CTA head, and CTA neck. MRI brain revealed "multiple scattered foci of acute infarction including along the right lateral thalamus and posterior left insula as well as within the body of the corpus callosum and anterior right frontal subcortical region". Patient was then evaluated by neurology for further management. He will continue aspirin 325 mg daily and atorvastatin 40 mg daily per stroke protocol. Physical therapy, Occupational Therapy, and speech therapy evaluated the patient; they recommended subacute rehab. The patient had a TTE that revealed PFO. The patient was then started on anticoagulation of apixaban 5 mg every 12 hours. Due to the patient not having the financial resources or insurance needed for subacute rehab, the patient will be discharged home with resources (home health PT, etc.). The patient is medically cleared for discharge. Care Plan Goals: Patient is medically cleared for discharge. Assessment: Patient is a 56-year-old male with past medical history of uncontrolled hypertension, obesity, and tobacco dependence who presented after a fall at home and complains of left leg weakness that mildly improved; however, he did not return back to his baseline. EMS was called and the patient was found to have a systolic blood pressure of 240 and diastolic 130 in addition to complaints of generalized headaches. In the ED the patient was initiated antihypertensives to medically manage his hypertensive emergency. The patient was diagnosed with noninsulin-dependent type 2 diabetes mellitus with a hemoglobin A1c of 7.3. He was started on Metformin 500 mg twice daily. Due to continued left-sided weakness, the patient was evaluated for stroke. The patient was found to have an unremarkable CT head noncontrast, CTA head, and CTA neck. MRI brain revealed "multiple scattered foci of acute infarction including along the right lateral thalamus and posterior left insula as well as within the body of the corpus callosum and anterior right frontal subcortical region". Patient was then evaluated by neurology for further management. He will continue aspirin 325 mg daily and atorvastatin 40 mg daily per stroke protocol. Physical therapy, Occupational Therapy, and speech therapy evaluated the patient; they recommended subacute rehab. The patient had a TTE that revealed PFO. The patient was then started on anticoagulation of apixaban 5 mg every 12 hours. Due to the patient not having the financial resources or insurance needed for subacute rehab, the patient will be discharged home with resources (home health PT, etc.). The patient is medically cleared for discharge. Follow up with: VERONICA TABARES MD [Staff Physician] - 10 Days (PCP referral- establish care) PRIMARY MD NICANOR [Primary Care Provider] - 7 Days Prescriptions: AtorvaSTATin [Lipitor] 40 mg PO QHS #30 tablet Citalopram [Celexa] 20 mg PO QDAY #30 tablet carvediloL [Coreg] 25 mg PO Q12HR #60 tablet Aspirin EC [Ecotrin] 325 mg PO QDAY #30 tablet Apixaban [Eliquis] 5 mg PO Q12HR #60 tablet metFORMIN [Glucophage] 500 mg PO BIDDIAB #60 tablet NIFEdipine XL [Procardia Xl] 30 mg PO QDAY #30 tablet
[2021-05-07] MEDS: oxyCODONE /ACETAMINOPHEN 5-325MG TAB PO PRN (11:48)
[2021-05-07] MEDS: APIXABAN 5 MG TAB PO SCH ×2 (11:49→21:53)
[2021-05-07] MEDS: metFORMIN 500 MG TAB PO SCH ×2 (11:50→16:41)
[2021-05-07] MEDS: ASPIRIN EC 325 MG TAB PO SCH (11:50)
[2021-05-07] MEDS: CITALOPRAM 20 MG TAB PO SCH (11:50)
[2021-05-07] MEDS: NIFEdipine XL 30 MG TAB PO SCH (11:50)
[2021-05-07] MEDS: carvediloL 25 MG TAB PO SCH ×2 (11:50→21:52)
[2021-05-08] MEDS: hydrALAZINE 25 MG TAB PO SCH (05:56)
[2021-05-08 05:59] LABS: Hematocrit 49.9 % (35.5-45.6); Hemoglobin 15.7 gm/dl (11.8-15.2); Mean Corpuscular HGB Conc 32 % (32-34); Mean Corpuscular Volume 82 fl (84-94); Platelet Count 352 K/mm3 (140-440); Red Blood Count 6.08 M/mm3 (3.65-5.03); Red Cell Distribution Width 12.9 % (13.2-15.2)
[2021-05-08] MEDS: INSULIN LISPRO 100 UNIT/ML SUB-Q SCH (08:02)
[2021-05-08] MEDS: carvediloL 25 MG TAB PO SCH (09:00)
[2021-05-08] MEDS: CITALOPRAM 20 MG TAB PO SCH (09:00)
[2021-05-08] MEDS: metFORMIN 500 MG TAB PO SCH (09:00)
[2021-05-08] MEDS: HYDROmorphone 1 MG/1 ML INJ IV PRN (09:01)
[2021-05-08] MEDS: APIXABAN 5 MG TAB PO SCH (09:02)
[2021-05-08] MEDS: ASPIRIN EC 325 MG TAB PO SCH (09:02)
[2021-05-08] MEDS: NIFEdipine XL 30 MG TAB PO SCH (09:03)
[2021-05-08 10:50] VITALS: BP 140/85
== END 2021-05-08 20:04 | disposition home health service (06) | DRG 65 ==
LOC: ED 10:12 → 4A 17:16 → OBSVTOIN 05-03 12:31
PROVIDERS: ADMIT Internal Medicine; ATTEND Student in an Organized Health Care Education/Training Program
DX: I63.9 Cerebral infarction, unspecified (principal); E87.1 Hypo-osmolality and hyponatremia; N17.9 Acute kidney failure, unspecified; I16.0 Hypertensive urgency; I10 Essential (primary) hypertension; F17.200 Nicotine dependence, unspecified, uncomplicated; Z79.899 Other long term (current) drug therapy; W18.39XA Other fall on same level, initial encounter; Y93.89 Activity, other specified; Y92.89 Other specified places as the place of occurrence of the external cause; Y99.8 Other external cause status; Z71.6 Tobacco abuse counseling; E11.65 Type 2 diabetes mellitus with hyperglycemia; E66.01 Morbid (severe) obesity due to excess calories; Z68.37 Body mass index [BMI] 37.0-37.9, adult; Z71.3 Dietary counseling and surveillance
CPT/HCPCS: 36415; 70450; 70496; 70498; 70551; 80048; 80053; 80061; 82565; 82962; 83036; 84443; 84484; 85007; 85025; 85027; 85610; 85730; 93005; 93010; 93306; 99406; G0378; J3490; Q9967; C8929; J0360; J1170; J1644; J1815; J7120

== ENCOUNTER 2021-05-24 18:32 | Emergency (ER) | payer SELFPAY ==
--- NOTE | 2021-05-24 19:42 | Emergency Department Report ---
ED Syncope HPI - General Chief Complaint: Syncope Stated Complaint: SYNCOPE Time Seen by Provider: 05/24/21 19:41 - History of Present Illness Initial Comments: Patient was brought in by ambulance secondary to a syncopal event. He was at home when he passed out. Family had called EMS because they noted the patient passed out. They report some shaking activity consistent with seizure. Patient was not postictal upon EMS arrival however. EMS states that the patient was awake, alert, and oriented when they got there. Duration for the symptoms is not known. Patient states that he was just sitting there watching TV when it happened. He has not had anything like this happen recently. He had no chest pain. He did not have any antecedent dizziness or lightheadedness. He did not feel as though he was going to pass out. He has no recollection of the event. - Related Data Allergies/Adverse Reactions: Allergies No Known Allergies Allergy (Verified 05/24/21 18:35) Home Medications: Ambulatory Orders Apixaban [Eliquis] 5 mg PO Q12HR #60 tablet 05/07/21 Aspirin EC [Ecotrin] 325 mg PO QDAY #30 tablet 05/07/21 AtorvaSTATin [Lipitor] 40 mg PO QHS #30 tablet 05/07/21 Citalopram [Celexa] 20 mg PO QDAY #30 tablet 05/07/21 Lisinopril [Zestril TAB] 2.5 mg PO QDAY #30 tab 05/07/21 NIFEdipine XL [Procardia Xl] 30 mg PO QDAY #30 tablet 05/07/21 carvediloL [Coreg] 25 mg PO Q12HR #60 tablet 05/07/21 metFORMIN [Glucophage] 500 mg PO BIDDIAB #60 tablet 05/07/21 ED Review of Systems ROS: Stated complaint: SYNCOPE Other details as noted in HPI Comment: All other systems reviewed and negative Constitutional: denies: fever Eyes: denies: vision change ENT: denies: throat pain Respiratory: denies: cough Cardiovascular: denies: chest pain Endocrine: denies: unexplained weight loss Gastrointestinal: denies: abdominal pain Genitourinary: denies: dysuria Musculoskeletal: denies: back pain Skin: denies: rash Neurological: denies: headache Hematological/Lymphatic: denies: easy bruising ED Past Medical Hx - Past Medical History Hx Hypertension: Yes (medication noncompliance) Hx CVA: Yes Additional medical history: OFF HTN MEDS, Left hand crush injury - Family History Family history: hypertension - Social History Smoking Status: Current Every Day Smoker (We discussed tobacco cessation) - Medications Home Medications: Home Medications Medication Instructions Recorded Confirmed Last Taken Type Apixaban [Eliquis] 5 mg PO Q12HR #60 tablet 05/07/21 Unknown Rx Aspirin EC [Ecotrin] 325 mg PO QDAY #30 tablet 05/07/21 Unknown Rx AtorvaSTATin [Lipitor] 40 mg PO QHS #30 tablet 05/07/21 Unknown Rx Citalopram [Celexa] 20 mg PO QDAY #30 tablet 05/07/21 Unknown Rx Lisinopril [Zestril TAB] 2.5 mg PO QDAY #30 tab 05/07/21 Unknown Rx NIFEdipine XL [Procardia Xl] 30 mg PO QDAY #30 tablet 05/07/21 Unknown Rx carvediloL [Coreg] 25 mg PO Q12HR #60 tablet 05/07/21 Unknown Rx metFORMIN [Glucophage] 500 mg PO BIDDIAB #60 tablet 05/07/21 Unknown Rx ED Physical Exam - General Limitations: No Limitations, Other (Pulse ox noted and normal) General appearance: alert, in no apparent distress - Head Head exam: Present: atraumatic, normocephalic - Eye Eye exam: Present: normal appearance, EOMI. Absent: scleral icterus - ENT ENT exam: Present: normal orophraynx, normal external ear exam - Neck Neck exam: Present: normal inspection. Absent: meningismus - Respiratory Respiratory exam: Present: normal lung sounds bilaterally. Absent: respiratory distress - Cardiovascular Cardiovascular Exam: Present: regular rate, normal rhythm - GI/Abdominal GI/Abdominal exam: Present: soft. Absent: distended - Extremities Exam Extremities exam: Present: normal capillary refill - Back Exam Back exam: Absent: CVA tenderness (R), CVA tenderness (L) - Neurological Exam Neurological exam: Present: alert, oriented X3, CN II-XII intact, reflexes n ormal, other (Patient has mild weakness involving the left arm and left leg from his stroke approximately 1 month prior.) - Psychiatric Psychiatric exam: Present: normal affect, normal mood - Skin Skin exam: Present: warm, dry ED Course Vital Signs 05/24/21 18:33 Temperature 99.2 F Pulse Rate 71 Respiratory 16 Rate Blood Pressure 151/95 [Right] O2 Sat by Pulse 98 Oximetry - Reevaluation(s) Reevaluation #1: 05/24/21 19:42 EMS was met upon arrival. Labs and CT were ordered. Old records noted. Reevaluation #2: 05/24/21 21:14 CT has been noted. Labs are still pending. ED Medical Decision Making - Lab Data Result diagrams: 05/24/21 19:57 05/24/21 19:57 - Radiology Data Radiology results: report reviewed - Medical Decision Making Patient presented secondary to a syncopal event with a seizure. Etiology for this remains unclear. There has been no evidence of dysrhythmia here. He does not have evidence of acute stroke. There is no evidence of intracranial bleed. He does not have any obvious metabolic derangement to account for his symptoms. Patient feels well. I do believe outpatient follow-up would be appropriate. I do not believe he needs emergent MRI or EEG. Critical Care Time: No Critical care attestation.: If time is entered above; I have spent that time in minutes in the direct care of this critically ill patient, excluding procedure time. ED Disposition Clinical Impression: Syncope Qualifiers: Syncope type: unspecified Qualified Code(s): R55 - Syncope and collapse Disposition: 01 HOME / SELF CARE / HOMELESS Is pt being admited?: No Condition: Stable Instructions: Syncope, Syncope (ED) Additional Instructions: Drink plenty water. Return for problems. Continue home medication. Follow-up with your regular doctor for recheck and further management Referrals: PRIMARY CARE [Primary Care Provider] - 3-5 Days
--- NOTE | 2021-05-24 20:16 | Cat Scan Report ---
CT BRAIN: 05/24/2021 INDICATION / CLINICAL INFORMATION: new onset sz. COMPARISON: 05/03/2021 FINDINGS: BRAIN/INTRACRANIAL STRUCTURES: Unenhanced CT images of the brain demonstrate no evidence of acute abn ormality. Prominent diffuse cerebral atrophy is again noted. Subacute lacunar ischemic changes are present in the thalami bilaterally, which were in a more acute stage the time the prior exam. There is no CT evidence of acute large vessel territory ischemic injury, hemorrhage, or mass. Prominent diffuse chronic white matter hypoattenuation is again noted. There are no abnormal extra-axial fluid collections. Atherosclerotic vascular calcifications are present in the distal internal carotid arteries and verte bral arteries. EXTRACRANIAL STRUCTURES: Unremarkable. IMPRESSION: No acute abnormality. Extensive chronic ischemic and age-related changes. All CT scans at this location are performed using dose reduction to ALARA by means of automated expos ure control. Signer Name: Rui Desouza MD Signed: 05/24/2021 8:12 PM Workstation Name: [id number]
[2021-05-24 20:42] LABS: INR 1.1 (0.87-1.13)
[2021-05-24 20:45] LABS: Alanine Aminotransferase 15 units/L (7-56); Albumin 3.8 g/dL (3.9-5); BUN/Creatinine Ratio 8; Blood Urea Nitrogen 8 mg/dL (9-20); Calcium 9.6 mg/dL (8.4-10.2); Hemolysis Index 1
[2021-05-24 21:14] LABS: Hematocrit 45.4 % (35.5-45.6); Hemoglobin 15.5 gm/dl (11.8-15.2); Mean Corpuscular HGB Conc 34 % (32-34); Mean Corpuscular Volume 82 fl (84-94); Platelet Count 310 K/mm3 (140-440); Red Blood Count 5.57 M/mm3 (3.65-5.03); Red Cell Distribution Width 12.3 % (13.2-15.2)
[2021-05-25 02:25] VITALS: BP 128/89
== END 2021-05-24 21:45 | disposition home or self-care (01) ==
LOC: ED 18:32
DX: R55 Syncope and collapse (principal); F17.200 Nicotine dependence, unspecified, uncomplicated; I10 Essential (primary) hypertension
CPT/HCPCS: 36415; 70450; 80053; 84484; 85025; 85610; 85730; 99284